=== PATIENT | female | born 1960 | race Caucasian/White ===

== ENCOUNTER → 2016-09-07 | Outpatient (REF) | payer MEDICARE, OTHER | LOC: M SFHCLERA 12:59 | PROVIDERS: ATTEND Nurse Practitioner Family | DX: J02.9 Acute pharyngitis, unspecified (principal) ==

== ENCOUNTER → 2016-11-12 | Outpatient (CLI) | payer MEDICARE, OTHER ==
--- NOTE | 2016-11-20 00:25 | ECWPNPC ---
PATIENT NAME: MOLLY MONTANEZ : 1960 GENDER: FEMALE VISIT DATE: 11/12/2016 DISCHARGE DATE: 11/12/16 1514 VISIT LOCKED DATE TIME: PHYSICIAN: GENE GA RESOURCE: GENE GA REASON FOR APPOINTMENT 1. BACK HISTORY OF PRESENT ILLNESS NEW PATIENT CONSULT: 56 Y/O FEMALE REFERRED TO US BY [facility] FOR EVALUATION OF CHRONIC LOW LOW BACK PAIN AND CHRONIC OPIOD USE.DESCRIBES PAIN CONSTANT ACHING AND THROBBING.RATING PAIN VAS 7/10.HISTORY OF LUMBAR SURGERY IN 2010.PAIN WAS GOOD FOR 6 MOS. THEN PAIN RETURNED.HAS BEEN ON HYDROCODONE 5/325 TWO TAB QID SINCE 2001. WE HAD A DISCUSSION REGARDING POTENTIAL SIDE EFFECTS OF DAILY OPIOD EXPOSURE AND IT WOULD BE OUR RECOMMENDATION TO SLOWLY DECREASE AN DISCONTINUE OPIODS.SHE IS ANXIOUS DUE TO THE FACT THAT SHE IS TAKING CARE OF HER GRANDCHILDREN AND IS AFRAID SHE WOULD NOT BE ABLE TO FUNCTION.HAS TRIALED MULTIPLE OTHER NON NARCOTIC PAIN MEDICATIONS OVER THE YEARS AND THEY WERE INEFFECTIVE.DENIES BOWEL OR BLADDER INCONTINENCE.NO RECENT FEVER ,ILLNESS OR WEIGHT LOSS. WHEN DID YOUR PAIN FIRST START? . BRIEFLY DESCRIBE HOW YOUR PAIN STARTED? . HOW DOES YOUR PAIN CHANGE WITH TIME? . DOES YOUR PAIN AWAKEN YOU FROM SLEEP? . HOW MANY HOURS OF SLEEP DO YOU NORMALLY GET? . ANY DIAGNOSTIC TESTING? . FACILITY WHERE TESTS WERE DONE? ____. PAIN TREATMENT TREATMENT YES CANCER HAVE YOU EVER HAD ANY TYPE OF CANCER?NO NO. PAIN SCREENING: PATIENT HAS A COMPLAINT OF ACUTE OR CHRONIC PAIN :YES FALL RISK SCREENING: SCREENING :NO FALLS IN THE PAST YEAR [place] INVENTORY: QUESTIONNAIRE ASSESSEDTBD SCORE VALUE CALCULATED TBD CURRENT MEDICATIONS TAKING RANITIDINE 150MG ORAL TID TAKING VITAMIN B12 SYRINGE 3CC SYRINGE 1 IM MONTHLY TAKING PROAIR HFA 108 (90 BASE) MCG/ACT AEROSOL SOLUTION 2 PUFFS NEEDED INHALATION QID PRN TAKING ADVAIR DISKUS 250-50 MCG/DOSE MISCELLANEOUS INHALATION NEEDED TAKING SINGULAIR 10 MG TABLET 1 TABLET IN THE EVENING ORALLY ONCE A DAY NEEDED, NOTES: NEEDED TAKING HYDROCODONE-ACETAMINOPHEN 5-325 MG TABLET 2 TABLET NEEDED ORALLY EVERY 6 HRS NOT-TAKING OXYCONTIN 20 MG TABLET EXTENDED RELEASE 12 HOUR 1 TABLET ORALLY QHS, NOTES: NEEDED NOT-TAKING PREDNISONE 10 MG TABLET 1 TABLET ORALLY ONCE A DAY, NOTES: NEEDED DISCONTINUED VICODIN 5-300 MG TABLET 2 TABLET NEEDED ORALLY EVERY 6 HRS PRN DISCONTINUED ROBAXIN 500 MG TABLET 1 TAB ORALLY TWICE DAILY NEEDED DISCONTINUED TAMIFLU 75 MG CAPSULE 1 CAPSULE ORALLY TWICE A DAY MEDICATION LIST REVIEWED AND RECONCILED WITH THE PATIENT PAST MEDICAL HISTORY DDD SPINE MORBID OBESITY S/P GASTRIC BYPASS UNCOMPLICATED ASTHMA, UNSPECIFIED ASTHMA SEVERITY HEARING IMPAIRED ALLERGIES PHENERGAN: HIVES: ALLERGY SURGICAL HISTORY L4-L5 SPINAL FUSION GASTRIC BYPASS T&A 1967 BREAST BX 2002 BONE SPURS REMOVED BOTH ANKLES/BOTH KNEES SINUS SURGERY-GAUZE REMOVED FROM PREVIOUS PROCEDURE HYSTERECTOMY 2003 FAMILY HISTORY FATHER: MOTHER: 1DAUGHTER(S) - HEALTHY. SOCIAL HISTORY GENERAL: TOBACCO USE ARE YOU A:NONSMOKER ALCOHOL SCREENING POINTS2 INTERPRETATIONNEGATIVE RECREATIONAL DRUG USE DRUG USE?NO CAFFEINE CAFFEINE USE?YES HOW OFTEN AND HOW MUCH? TEA DAILY OCCUPATION: RETIRED. DIET: SMALL PORTIONS S/P GASTRIC BYPASS. EXERCISE: DAILY, WALKS. MARITAL STATUS: . LEARNING BARRIERS / SPECIAL NEEDS BARRIERS TO LEARNING?YES HEARING IMPAIRED?YES : BILATERAL HEARING AIDS LEARNING PREFERENCES?YES :HANDOUTS, DEMONSTRATION/VERBAL INSTRUCTION MEDICATION ABUSE NO PSYCHOLOGICAL HX TREATMENTNO PAIN CLINIC PFS, CLERGY, PUBLIC HEALTH REFERRALS CLERGY REFERRAL NEEDED?NO WAS THE PROVIDER NOTIFIED OF ANY PERTINENT INFO?NO PFS REFERRAL NEEDED?NO PUBLIC HEALTH REFERRAL NEEDED?NO PATIENT: ____. ADVANCED DIRECTIVES HEALTH CARE PROXY?YES NAME OF HCP CARROLL REECE CONTACT # FOR HCP [phone] DO YOU HAVE A COPY WITH YOU? NO DO YOU HAVE A DNR? YES POWER OF TRAINING PROGRAM MANAGER? CARROLL REECE HOSPITALIZATION/MAJOR DIAGNOSTIC PROCEDURE ABOVE SURGERIES REVIEW OF SYSTEMS CONSTITUTIONAL: RECENT ILLNESS DENIES . ANY CHANGE IN YOUR MEDICAL CONDITION? NO . CHILLS NO . FEVER NO, DENIES . WEIGHT LOSS DENIES . INFECTION: DO YOU HAVE NEW INFECTIONS? NO . DO YOU HAVE HISTORY OF MRSA? NO . MUSCULOSKELETAL: ANY NEW PATTERNS OF PAIN OR NUMBNESS? YES HX OF LOW BACK PAIN X5 YRS. HX OF BACK SURGERY -EXTOP- L4-L5 IN 2010. DENIES SPECIFIC INJURY. PT STATES BACK PAIN IMPROVED AFTER GASTRIC BYPASS SURGERY, BUT PAIN RETURNED. . SYTEMIC LUPUS NO . JOINT PAIN DENIES . JOINT STIFFNESS DENIES . GASTROENTEROLOGY: BOWEL INCONTINENCE DENIES . ANY NEW CHANGE IN BOWEL CONTROL? NO . BARRETTS ESOPHAGUS NO . CIRRHOSIS NO . HEPATITIS NO . LIVER FAILURE NO . ACID REFLUX YES . BLOOD IN STOOL DENIES . UNEXPLAINED WEIGHT LOSS NO . GENITOURINARY: ANY NEW CHANGE IN BLADDER CONTROL? NO . IS THERE A CHANCE YOU COULD BE ? NO . HEMATOLOGY/LYMPH: DENIES . BLEEDING DISORDER DENIES . DO YOU TAKE ANY BLOOD THINNERS? (FOR EXAMPLE- COUMADIN, PLAVIX, AGGRENOX, PLATEL, PRADAXA, OR XARELTO) NO . WHEN WAS YOUR LAST DOSE? DATE: TIME: . LOW PLATELET COUNT NO . SICKLE CELL DISEASE NO . VON WILLIEBRANDS NO . FACTOR V LEIDEN NO . THALLASEMIA NO . ANEMIA NO . EASY BRUISING NO . NEUROLOGY: HAVE YOU FALLEN IN THE PAST 6 MONTHS? YES FELL OVER LAUNDRY BASKET 1 MONTH AGO. NO ED EVAL. DID SEE DENTIST. . ANY NEW EXTREMITY NUMBNESS OR WEAKNESS? NO . HEAD INJURY NO . DEMENTIA NO . CEREBRAL PALSY NO . MULTIPLE SCLEROSIS NO . DIZZINESS NO . HEADACHE NO, DENIES . SEIZURES DENIES . STROKES NO . VERTIGO NO . CARDIOLOGY: DO YOU HAVE A PACEMAKER OR DEFIBRILLATOR? NO . ANGINA NO . HEART ATTACK NO . HEART SURGERY NO . CONGESTIVE HEART FAILURE/FLUID OVERLOAD NO . CHEST PAIN NO, DENIES . HIGH BLOOD PRESSURE NO . IRREGULAR HEART BEAT NO . SHORTNESS OF BREATH DENIES . RESPIRATORY: HAVE YOU BEEN SICK IN THE PAST WEEK? NO . FEVER NO . FLU LIKE SYMPTOMS? NO . CPAP NO . BYPAP NO . ASTHMA YES . EMPHYSEMA NO . CHRONIC LUNG DISEASES NO . SHORTNESS OF BREATH ON EXERTION NO . DO YOU USE ANY TYPE OF TOBACCO (SMOKE, SMOKELESS, CHEW)? NO . COUGH NO, DENIES . SHORTNESS OF BREATH DENIES . SNORING NO . INTEGUMENTARY: DO YOU HAVE ANY RASHES OR OPEN SORES? NO . ALLERGIC/IMMUNO: ARE YOU ALLERGIC TO SHELLFISH OR IV DYE? NO . ANY NEW ALLERGIES? NO . PSYCHIATRIC: DO YOU HAVE THOUGHTS OF HURTING YOURSELF OR SOMEONE ELSE? NO . ARE YOU ABUSED, NEGLECTED, OR IN AN UNSAFE ENVIRONMENT? NO . ENDOCRINOLOGY: THYROID DISEASE DENIES . ARE YOU DIABETIC? NO . DIABETES DENIES . THYROID DISORDER NO . OTHER: DO YOU NEED ANY PRESCRIPTIONS? NO . IF YES, PLEASE LIST: ____ . ANY NEW PROBLEMS WITH YOUR MEDICATIONS? NO . WHEN DID YOU LAST EAT? ____ . WHEN DID YOU LAST DRINK? ____ . WHAT DID YOU LAST DRINK? ____ . NAME OF PERSON DRIVING YOU HOME? ____ . DO YOU HAVE ANY OTHER QUESTIONS OR CONCERNS NO . HEENT: CHANGE IN VISION DENIES . LOSS OF HEARING DENIES . TROUBLE SWALLOWING DENIES . PSYCHOLOGY: ANXIETY DENIES . DEPRESSION DENIES . UROLOGY: URINARY INCONTINENCE DENIES . BLOOD IN URINE DENIES . REVIEWED BY: PROVIDER: GENE JUILEN . VITAL SIGNS WT 144.8 LBS, HT 67", BMI 22.68 INDEX, BP 151/92 MM HG, HR 102 /MIN, RR 16 /MIN, TEMP 97.9 F, OXYGEN SAT % 96%, NA INITIALS TL 1347, REVIEWED BY: MLF. EXAMINATION GENERAL EXAMINATION: HEENT:HEAD:, NORMOCEPHALIC, EYES:, EYES NORMAL, NOSE:, NOSE CLEAR, THROAT: NORMAL. LUNGS:LUNG SOUNDS ARE CLEAR. HEART:HEART RATE REGULAR. ABDOMEN:SOFT AND NOT TENDER, NON-DISTENDED. MUSCULOSKELETAL:*. LUMBAR SACRAL SPINEMUSCLE STRENGTH TESTING 5/5 BILATERAL, PALPATION: + FOR PAIN OVER L/S SPINE. + FOR PAIN OVER L/S PARASPINALS.SPECIFIC POINT TENDERNESS OVER BILAT. SIJ R>L. THORACIC SPINENEGATIVE FOR PAIN WITH PALPATION OF THORACIC SPINE. NEGATIVE FOR PAIN WITH PALPATION OF THORACIC PARASPINAL. CERVICALNEGATIVE FOR PAIN WITH PALPATION OF CERVICAL SPINE. NEGATIVE FOR PAIN WITH PALPATION OF CERVICAL PARASPINALS. NEGATIVE FOR PAIN WITH PALPATION OF TRAPEZIUS BILAT. SKIN:NORMAL, NO RASH. NEUROLOGIC EXAM:ALERT AND ORIENTED X 3, DTRS 1-2+ IN ALL 4 EXTREMITIES, DENIES UPPER EXTREMETIES SENSORY LOSS, DENIES LOWER EXTREMETIES SENSORY LOSS. DIAGNOSTIC: . ASSESSMENTS POST LAMINECTOMY SYNDROME - M96.1 (PRIMARY) SACROILIAC INFLAMMATION - M46.1 CHRONIC PRESCRIPTION OPIATE USE - Z79.891 TREATMENT POST LAMINECTOMY SYNDROME DECREASE HYDROCODONE-ACETAMINOPHEN TABLET, 5-325 MG, 1-2, ORALLY, EVERY 12 HRS DIRECTED MDD4, 30 DAY(S), 60, REFILLS 0 START CLONIDINE HCL TABLET, 0.1 MG, 1 TABLET AT BEDTIME, ORALLY, Q8H PRN, 30 DAY(S), 30, REFILLS 0 NOTES: RISKS AND BENEFITS OF NARCOTIC/OPIOD MEDICATIONS WERE REVIEWED WITH PATIENT - THIS INCLUDES BUT IS NOT LIMITED TO RISK OF DEPENDANCE/DEVELOPMENT OF ADDICTION, MOOD DISTURBANCE AND DEPRESSION, OSTEOPOROSIS, HORMONAL AND LABIDAL CHANGES, RESPIRATORY DEPRESSION AND . PATIENT IS ADVISED NOT TO DRIVE WHILE ON THESE MEDICATIONS. OTHERS CLINICAL NOTES: SLOWLY DECREASE HYDROCODONE 5/325-TAKE 2TAB AM AND PM X 10 DAYS.THEN ONE AM AND PM UNTIL SEEN AT CLINIC. PREVENTIVE MEDICINE PAIN CLINIC TEACHING: MEDICATIONS PRINTED CLONIDINE HANDOUTS GIVEN/REVIEWED WITH PT. PROCEDURE CODES FA211 ESTABILISHED PATIENT [facility] CHARGE G8730 PAIN ASSESS POS TOOL F/U PLAN DOC G8427 DOC MEDS VERIFIED W/PT OR RE DISPOSITION & COMMUNICATION FOLLOW UP 4 WEEKS ELECTRONICALLY SIGNED BY WILY ALICIA ON 11/19/2016 AT 06:24 PM EDT DISCLAIMER : THIS IS A VISIT SUMMARY EXTRACTED FROM THE [employer] CHART. IT IS NOT A COPY OF THE [employer] PROGRESS NOTE. KASSANDRA
== END ==
LOC: M PAIN 13:20
PROVIDERS: ATTEND Nurse Practitioner Family
DX: G89.29 Other chronic pain (principal); M96.1 Postlaminectomy syndrome, not elsewhere classified; M46.1 Sacroiliitis, not elsewhere classified; E66.9 Obesity, unspecified; J45.909 Unspecified asthma, uncomplicated; H91.90 Unspecified hearing loss, unspecified ear; Z88.8 Allergy status to other drugs, medicaments and biological substances; Z79.899 Other long term (current) drug therapy

== ENCOUNTER → 2017-02-08 | Outpatient (CLI) | payer MEDICARE, OTHER ==
[~2017-02-08] MED LIST: ADVI200T PO; ALBU17IN2 INH; ALEV220T26 PO; CELE10TA PO; CYAN1000VL INJ; DIPH50CA PO; DRIS50002 PO; FOLI1TAB4 PO; IBUP200C10 PO; LIDO1PAD TOP; METH1TAB40; MUCI600T31 PO; OXYC-141; RANI150T PO; SING10TA32 PO; TRAZ10TA PO; VITMTA PO; ZOFR4TAB3 PO; azmacort
--- NOTE | 2017-02-08 18:35 | REP ---
Clinical: Pain with recent trauma. Technique: AP, lateral, bilateral oblique views of the right wrist. Findings: Osteopenia and moderate arthritic degenerative changes are appreciated. No acute fracture or dislocation identified. No significant soft tissue swelling. Impression: No acute fracture or dislocation. Signed by Tobi Ortiz MD 02/08/2017 06:26 P
--- NOTE | 2017-02-08 18:36 | REP ---
Clinical: Trauma. Technique: Frontal view of the chest with multiple views of the right and left hemithorax. Findings: Frontal view of the chest demonstrates no acute cardiopulmonary process. Multiple views of the right and left hemithorax demonstrates no obvious acute rib fracture or pathology. Impression: Normal bilateral rib series Signed by Tobi Ortiz MD 02/08/2017 06:28 P
== END ==
LOC: M LRY 17:33
PROVIDERS: ATTEND Nurse Practitioner Family
DX: R07.81 Pleurodynia (principal); S69.91XA Unspecified injury of right wrist, hand and finger(s), initial encounter; X58.XXXA Exposure to other specified factors, initial encounter; Y92.89 Other specified places as the place of occurrence of the external cause; Y93.89 Activity, other specified; Y99.8 Other external cause status
CPT/HCPCS: 71111; 73110; 96372; G0463; J1885

== ENCOUNTER 2017-03-04 13:29 | Emergency (ER) | payer MEDICARE, OTHER ==
[~2017-03-04] VITALS: Ht 170.2 cm; Wt 66.4 kg
[2017-03-04] MEDS ORDERED: METH1TAB40 (13:46)
[2017-03-04] MEDS ORDERED: CYAN1000VL INJ (13:46)
[2017-03-04] MEDS ORDERED: ALBU17IN2 INH (13:46)
[2017-03-04] MEDS ORDERED: SING10TA32 PO (13:46)
[2017-03-04] MEDS ORDERED: OXYC-141 (13:46)
[2017-03-04] MEDS ORDERED: RANI150T PO (13:46)
[2017-03-04] MEDS ORDERED: NS 1,000 ML IV SCH (13:48)
[2017-03-04] MEDS ORDERED: ASPIRIN 81 MG CHEW TABLET PO ONE (14:00)
[2017-03-04] MEDS ORDERED: GI COCKTAIL 50ML BTL(HYOSCYAMINE/MAALOX/LIDOCAINE VISCOUS)(1:3:1) PO ONE (14:00)
[2017-03-04 14:04] LABS: BASO % 0.4 % (0.0-1.0); EOS % 0.4 % (0.0-3.0); LARGE UNSTAINED CELL # 0.1 K/mm3 (0.0-0.4); LARGE UNSTAINED CELL % 1.6 % (0.0-4.0); LYMPH # 1.9 K/mm3 (1.5-4.5); LYMPH % 28.9 % (24.0-44.0); MEAN CORPUSCULAR HGB CONC 34.7 g/dl (32.0-36.5); MEAN CORPUSCULAR VOLUME 106.6 fl (80.0-96.0); MONO # 0.3 K/mm3 (0.0-0.8); MONO % 5.1 % (0.0-5.0); NEUTROPHILS # 3.9 K/mm3 (1.8-7.7); NEUTROPHILS % 63.6 % (36.0-66.0); PLATELET COUNT, AUTOMATED 169 k/mm3 (150-450); RED CELL DISTRIBUTION WIDTH 13.9 % (11.5-14.5); WHITE BLOOD COUNT 6.2 K/mm3 (4.0-10.0)
[2017-03-04 14:07] LABS: INR 0.94
[2017-03-04 14:32] LABS: ALBUMIN 2.9 GM/DL (3.2-5.2); ALBUMIN/GLOBULIN RATIO 0.85 (1.00-1.93); ALKALINE PHOSPHATASE 281 U/L (45-117); ALT/SGPT 92 U/L (12-78); ANION GAP 15 MEQ/L (8-16); AST/SGOT 234 U/L (15-37); BILIRUBIN,DIRECT 0.3 MG/DL (0.0-0.2); BILIRUBIN,TOTAL 0.8 MG/DL (0.2-1.0); BLOOD UREA NITROGEN 4 MG/DL (7-18); CALCIUM LEVEL 8.3 MG/DL (8.5-10.1); CARBON DIOXIDE LEVEL 20 MEQ/L (21-32); CHLORIDE LEVEL 103 MEQ/L (98-107); CREATININE FOR GFR 0.59 MG/DL (0.55-1.02); GLOMERULAR FILTRATION RATE > 60.0 (>51); GLUCOSE, FASTING 98 MG/DL (70-105); POTASSIUM SERUM 4.3 MEQ/L (3.5-5.1); SODIUM LEVEL 138 MEQ/L (136-145); TOTAL PROTEIN 6.3 GM/DL (6.4-8.2)
--- NOTE | 2017-03-04 14:43 | REP ---
PA and lateral chest: Comparison is the bilateral rib series dated 02/08/2017. The lung hernandez are clear. The cardiac size is normal The kassie, mediastinum, and bony thorax are unremarkable. Impression: Negative PA and lateral chest. Signed by Pablito Brasher MD 03/04/2017 02:35 P
[2017-03-04] MEDS ORDERED: KETOROLAC 30 MG/ML VIAL (J1885) IV ONE (15:15)
[2017-03-04] MEDS ORDERED: ONDANSETRON 4MG/2ML VIAL (J2405) IV ONE (15:15)
[2017-03-04] MEDS ORDERED: ISOVUE-370 76% 100ML VIAL (Q9967) As Ordered ONE (15:16)
[2017-03-04 15:18] LABS: AMYLASE 40 U/L (25-115)
[2017-03-04] MEDS ORDERED: ZOFR4TAB3 PO (16:37)
--- NOTE | 2017-03-04 16:38 | REP ---
CT of the abdomen pelvis with IV and bowel contrast: There are no comparison studies. The visualized lung hernandez are unremarkable. There is diffuse decreased density throughout the hepatic parenchyma, compatible with hepato steatosis. No hepatic masses. There is no cholelithiasis or biliary duct dilatation. However, there is enhancement of the gallbladder wall. This is nonspecific, however, could indicate acalculous cholecystitis. The. Correlate with clinical findings. Consider radionuclide biliary scan. There is a hiatal hernia and there are surgical clips at the gastroesophageal hiatus. The the patient states she has had bariatric surgery. There is focal distension of small bowel loops in the abdominal left upper quadrant. This is nonspecific but may represent focal ileus. There is a surgical staple line in the wall of the distended small bowel loops. The pancreas and spleen are unremarkable. The adrenals, kidneys and abdominal aorta are unremarkable. The mid and distal small bowel loops are unremarkable. Pelvis: There is no ascites or adenopathy. The bladder is unremarkable. There is a hysterectomy. Vaginal cuff and adnexa are unremarkable. The appendix is not identified, however there is no pericecal inflammation. Impression: Enhancement of the gallbladder wall. This is nonspecific. There is no cholelithiasis. The gallbladder wall enhancement may represent acalculous cholecystitis, however there is no gallbladder distension or pericholecystic fluid. Correlate clinically and consider radionuclide biliary scan. There is bariatric surgery. There are dilated small bowel loops in the abdominal left upper quadrant, nonspecific. There is a surgical staple line in the wall of the dilated small bowel, likely from bariatric surgery. This could represent focal ileus. There are no comparison studies. There is no ascites or adenopathy. No pneumoperitoneum. There is hepato steatosis. Signed by Pablito Brasher MD 03/04/2017 04:30 P
[2017-03-04 16:54] VITALS: BP 141/82
--- NOTE | 2017-03-05 07:29 | ED PDOC ---
Post-Departure Follow-Up radiology report faxed to [facility] Chaya Rodríguez MD Mar 05, 2017 07:29
--- NOTE | 2017-03-05 11:20 | ECGEPIP ---
Stationary ECG Study [facility] - ED Test Date: 2017-03-04 Pat Name: MOLLY MONTANEZ Department: Room: - Gender: F Production Material Handler: tk : 1960 Requested By: Damon Mejia Order Number: [id number] Reading MD: Chaya Rodríguez Measurements Intervals [place] Rate: 110 P: 61 IA: 137 QRS: -41 QRSD: 69 T: 26 QT: 316 QTc: 429 Interpretive Statements SINUS TACHYCARDIA PATTERN CONSISTENT WITH PULMONARY DISEASE INFERIOR MYOCARDIAL INFARCTION, PROBABLY OLD NO PRIOR FOR COMPARISON Electronically Signed On 03-05-2017 11:20:39 EDT by Chaya Rodríguez
== END 2017-03-04 16:57 | disposition home or self-care (01) ==
LOC: EDBD 13:29 → M ED 13:29
DX: K81.1 Chronic cholecystitis (principal); B19.9 Unspecified viral hepatitis without hepatic coma; K76.0 Fatty (change of) liver, not elsewhere classified; K44.9 Diaphragmatic hernia without obstruction or gangrene; K21.9 Gastro-esophageal reflux disease without esophagitis; J45.909 Unspecified asthma, uncomplicated; Z98.84 Bariatric surgery status; Z90.79 Acquired absence of other genital organ(s); Z87.891 Personal history of nicotine dependence; Z88.8 Allergy status to other drugs, medicaments and biological substances; Z79.899 Other long term (current) drug therapy; Z82.49 Family history of ischemic heart disease and other diseases of the circulatory system
CPT/HCPCS: 71020; 74177; 80048; 80076; 82150; 82550; 82553; 83690; 84484; 85025; 85610; 86705; 86709; 86803; 87340; 93005; 93041; 94760; 96361; 96374; 96375; 99285; J1885; J2405; Q9967

== ENCOUNTER 2017-05-07 16:52 | Inpatient (IN) | payer MEDICARE, OTHER ==
[~2017-05-07] VITALS: Ht 170.2 cm; Wt 72.0 kg
[~2017-05-07 16:52] MED LIST changes: -ADVI200T PO; -ALEV220T26 PO; -CELE10TA PO; -DIPH50CA PO; -DRIS50002 PO; -FOLI1TAB4 PO; -IBUP200C10 PO; -LIDO1PAD TOP; -MUCI600T31 PO; -TRAZ10TA PO; -VITMTA PO; -azmacort
[2017-05-07] MEDS ORDERED: ALEV220T26 PO (17:25)
[2017-05-07] MEDS ORDERED: IBUP200C10 PO (17:25)
[2017-05-07] MEDS ORDERED: azmacort (17:25)
[2017-05-07 18:35] LABS: MEAN CORPUSCULAR HEMOGLOBIN 35.1 pg (27.0-33.0); MEAN CORPUSCULAR HGB CONC 33.6 g/dl (32.0-36.5); MEAN CORPUSCULAR VOLUME 104.4 fl (80.0-96.0); RED CELL DISTRIBUTION WIDTH 12.9 % (11.5-14.5); WHITE BLOOD COUNT 3.5 10^3/uL (4.0-10.0)
[2017-05-07 18:42] LABS: ALBUMIN 3.5 GM/DL (3.2-5.2); ALBUMIN/GLOBULIN RATIO 1.21 (1.00-1.93); ALKALINE PHOSPHATASE 121 U/L (45-117); ALT/SGPT 31 U/L (12-78); ANION GAP 12 MEQ/L (8-16); AST/SGOT 52 U/L (15-37); BILIRUBIN,DIRECT 0.2 MG/DL (0.0-0.2); BILIRUBIN,TOTAL 0.4 MG/DL (0.2-1.0); BLOOD UREA NITROGEN 5 MG/DL (7-18); CALCIUM LEVEL 8.8 MG/DL (8.5-10.1); CARBON DIOXIDE LEVEL 26 MEQ/L (21-32); CHLORIDE LEVEL 103 MEQ/L (98-107); CREATININE FOR GFR 0.55 MG/DL (0.55-1.02); GLOMERULAR FILTRATION RATE > 60.0 (>51); GLUCOSE, FASTING 91 MG/DL (70-105); SODIUM LEVEL 141 MEQ/L (136-145); TOTAL PROTEIN 6.4 GM/DL (6.4-8.2)
[2017-05-07 18:48] LABS: METHADONE URINE NEGATIVE (NEGATIVE)
[2017-05-07] MEDS ORDERED: diphenhydrAMINE 50 MG CAP PO ONE (20:15)
[2017-05-07] MEDS ORDERED: LIDO1PAD TOP (20:54)
[2017-05-07] MEDS ORDERED: raNITIdine SYRUP 150 MG/10 ML UDC PO ONE (21:00)
[2017-05-08] MEDS ORDERED: OXAZEPAM 15 MG CAP PO ONE (01:00)
[2017-05-08] MEDS ORDERED: MAALOX 30 ML SUSP *UDC PO PRN (02:00)
[2017-05-08] MEDS ORDERED: MOM 30ML SUSPENSION UDC PO PRN (02:00)
[2017-05-08] MEDS: THIAMINE 100 MG TAB PO SCH ×3 (02:05→20:53)
[2017-05-08 02:41] VITALS: BP 138/81
[2017-05-08] MEDS: OXAZEPAM 15 MG CAP PO PRN ×2 (09:00→13:36)
[2017-05-08] MEDS: FOLIC ACID 1 MG TAB PO SCH (09:02)
[2017-05-08] MEDS: MULTIVITAMINS/MINERALS THERAP 1 TAB PO SCH (09:02)
[2017-05-08] MEDS ORDERED: ALBUTEROL 90 MCG/ACT 8GM HFA INHALER INH PRN (09:15)
[2017-05-08] MEDS ORDERED: IBUPROFEN 200 MG TAB PO PRN (09:15)
--- NOTE | 2017-05-08 09:29 | HPEPDOC ---
[facility] Medical History & Physical Date of Admission May 07, 2017 History and Physical PCP: Mook Vergara. Gastroenterology. Dr Benjie Ha MA. ATTENDING: Dr. Gold Foote HPI: 56yoF admitted to [facility] for unspecified depressive disorder, being medically examined today. She was seen in the [facility] emergency department 02/23 related to cholecystitis. Patient denies any abdominal pain currently. She states she has been eating and drinking. She was seen and follow-up by her PCP regarding this issue. She was referred to gastroenterology, Dr. Waldrop for evaluation of elevated liver function studies. She states testing was completed including right upper quadrant ultrasound. Her next appointment is scheduled 05/11/17. Patient states she has chronic low back pain. She uses ibuprofen as needed. She uses Lidoderm as needed. She states this is at her baseline. She does not feel she needs to see pain management. Denies any fevers, chills, weakness, fatigue, ARNOLD, CP, SOB, cough, palpitations, abdominal pain, N/V/D or changes in bowel or bladder habits. PMHx: DDD/back pain GERD Vitamin B 12 def Asthma H/O elevated LFT/cholecystitis/hepatitis. Following with Leland Salguero. CT A/P 02/23. Hepatitis profile negative 02/23. Bilateral hearing aids/hearing loss. PSHX: Tonsillectomy/adenoidectomy Right breast biopsy, benign Hysterectomy 2004 Lumbar laminectomy Bilateral foot surgery, heel spur/hammertoe Gastric bypass procedure SOCHX: Resides in: Staying at [facility] with her Dtr, from [place]. Marital Status: Kids:1 Employment: retired senior support analyst. Tobacco use: denies ETOH: Pt states 2 glasses of wine per week. Recently Pt states has drank "way too much" on 2 occasions. Illicit Drugs: Denies IV Drug Use: Denies Tattoos done unprofessionally: Denies FAMHX: Mother: heart disease Father: heart disease Siblings: 1 brother, 2 sisters Alive, MS, bipolar disorder. Children: Alive, well Unexpected deaths due to medical reasons: None. ROS: As noted in HPI, otherwise 11pt ROS of systems reviewed and remarkable only for LMP N/A Hysterectomy. PE: GEN: 56yoF, appears stated age. Well-nourished, well developed. No acute distress. Alert and oriented x 3. Pleasant, interactive. HEENT: Normocephalic, atraumatic. Pupils are equal, round, and reactive to light. Extraocular movements are intact. No nystagmus appreciated. Sclera are nonicteric. Conjunctiva without injection. Nose midline. Nasal turbinates without bogginess. EACs both patent BL. TMs both visualized and rodriguez with good cone of light, no bulging or erythema. No facial asymmetry. Moist mucous membranes. Dentition fair. Pharynx pink and moist, no cobblestoning. Neck supple , trachea midline. No lymphadenopathy or thyromegaly appreciated. CHEST: Regular rate and rhythm, +S1, +S2 LUNGS: Clear to auscultation bilaterally. No wheezes, rales, or rhonchi. Breathing appears symmetric and easy. Patient is speaking in full sentences. No accessory muscle use. ABD: Round, soft, non-tender, non-distended. +Bowel sounds throughout. No rebound or guarding. No costovertebral angle tenderness. EXT: Pulses 2+ bilaterally dorsalis pedis and radial. No lower extremity edema appreciated. SKIN: [place], dry, warm. Capillary refill <2sec. No rashes. NEURO: Alert and oriented x 3. Cranial nerves III-XII are intact. No focal deficits appreciated. EKG: pending. CT A/P 02/23 Enhancement of the gallbladder wall. This is nonspecific. There is no cholelithiasis. The gallbladder wall enhancement may represent acalculous cholecystitis, however there is no gallbladder distension or pericholecystic fluid. Correlate clinically and consider radionuclide biliary scan. There is bariatric surgery. There are dilated small bowel loops in the abdominal left upper quadrant, nonspecific. There is a surgical staple line in the wall of the dilated small bowel, likely from bariatric surgery. This could represent focal ileus. There are no comparison studies. There is no ascites or adenopathy. No pneumoperitoneum. There is hepato steatosis. A&P: 56yoF admitted to [facility] for unspecified depressive disorder 1. Psych. Plan per Psychiatry. Obtain baseline EKG to assure the safety of psychiatric medications as they can prolong the QT interval. 2. History of elevated LFTs. Recheck CMP in a.m. Request copy of records from gastroenterology, Dr. a monoclonal including right upper quadrant ultrasound. Hepatitis profile is noted to be unremarkable 03/04/17. Patient has follow-up appointment with Dr. Waldrop 05/11/17. 3. GERD. Continue Zantac 150 mg 3 times a day. 4. Follow up with PCP on discharge. 5. Substance use. Per psychiatry. Continue with MVI, Thiamine, and Folic Acid supplementation. 6. Vitamin B12 deficiency. Continue monthly injections. 7. Asthma. Continue albuterol HFA 2 puffs every 4 hours as needed. 8. Chronic low back pain. Continue ibuprofen 200 mg every 6 hours as needed for pain, Lidoderm patch applied to low back daily as needed. 9. History of vitamin B12 deficiency. Continue with monthly injections. 10. History of gastric bypass. BMI noted to be 23.9. Hemoglobin is noted within normal limits. TSH is noted within normal limits. Add vitamin D level. 11. Staff member Kylee present throughout exam. Vital Signs Vital Signs Date Time Temp Pulse Resp B/P (MAP) Pulse Ox O2 Delivery O2 Flow Rate FiO2 05/08/17 02:41 97.5 96 20 138/81 (100) Room Air 05/08/17 02:07 96 Laboratory Data Labs 24H Item Value Date Time Hepatitis A IgM Antibody NEGATIVE 03/04/17 1345 Hepatitis B Surface Antigen NEGATIVE 03/04/17 1345 Hepatitis B Core IgM Antibody NEGATIVE 03/04/17 1345 Hepatitis C Antibody Index < 0.0 INDEX 03/04/17 1345 Laboratory Tests 2 05/07/17 17:32: Anion Gap 12, Glomerular Filtration Rate > 60.0, Calcium Level 8.8, Aspartate Amino Transf (AST/SGOT) 52H, Alanine Aminotransferase (ALT/SGPT) 31, Alkaline Phosphatase 121H, Total Bilirubin 0.4, Direct Bilirubin 0.2, Total Protein 6.4, Albumin 3.5, Albumin/Globulin Ratio 1.21, Thyroid Stimulating Hormone (TSH) 1.050, Salicylates Level < 1.7L, Urine Amphetamines Screen NEGATIVE, Urine Benzodiazepines Screen NEGATIVE, Urine Opiates Screen NEGATIVE, Urine Methadone Screen NEGATIVE, Acetaminophen Level < 2.0L, Urine Barbiturates Screen NEGATIVE , Urine Phencyclidine Screen NEGATIVE, Urine Cocaine Metabolite Screen NEGATIVE , Urine Cannabinoids Screen NEGATIVE, Ethyl Alcohol Level 0.272H CBC/BMP Laboratory Tests 05/07/17 17:32 Red Blood Count 4.36, Mean Corpuscular Volume 104.4 H, Mean Corpuscular Hemoglobin 35.1 H, Mean Corpuscular Hemoglobin Concent 33.6, Red Cell Distribution Width 12.9 Home Medications Scheduled Cyanocobalamin (Cyanocobalamin) 1,000 Mcg/1 Ml Inj, 1,000 MCG INJ QMONTH 28TH OF EVERY MONTH Ranitidine HCl (Ranitidine HCl) 150 Mg Tab, 150 MG PO TID Scheduled PRN (Lidocaine) 5 % Pad, 1 PATCH TOP DAILY PRN for PAIN APPLY TO LOWER BACK Albuterol Sulfate (Proventil Hfa) 167 Puff/6.7 Gm Aers, 2 PUFFS INH PRN PRN for SHORTNESS OF BREATH Ibuprofen (Ibuprofen) 200 Mg Cap, 200 MG PO PRN PRN for pain Naproxen Sodium (Aleve) 220 Mg Tab, 220 MG PO BID PRN for PAIN Allergies Coded Allergies: Promethazine (Verified Allergy, Intermediate, 03/04/17) hives and nausea Shamika Black May 08, 2017 09:29
[2017-05-08] MEDS: FAMOTIDINE 20 MG TAB PO SCH ×2 (13:37→20:53)
[2017-05-08] MEDS: CitaloPRAM (CeleXA) 10 MG TABLET PO SCH (13:37)
[2017-05-08] MEDS: ACETAMINOPHEN TAB 650MG DOSE (2X325MG) PO PRN (17:53)
[2017-05-08 18:00] VITALS: BP 134/66
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
[2017-05-08] MEDS: traZODone 50 MG TAB PO PRN (20:53)
[2017-05-08] MEDS: LIDOCAINE 5% (LIDODERM) PATCH TOP PRN (20:55)
[2017-05-08 21:00] VITALS: BP 136/74
[2017-05-08] MEDS: **NOTE PATIENT COMMENT** MISC XX SCH (21:31)
--- NOTE | 2017-05-08 23:36 | ECGEPIP ---
Stationary ECG Study [facility] Test Date: 2017-05-08 Pat Name: MOLLY MONTANEZ Department: Room: [place] [address] Gender: F Steward/Stewardess Tourist Class: : [id number] Requested By: Shamika Black Order Number: [id number] Reading MD: Osito Doll Measurements Intervals [place] Rate: 109 P: 31 TX: 146 QRS: -34 QRSD: 86 T: 20 QT: 334 QTc: 451 Interpretive Statements SINUS TACHYCARDIA MARKED LEFT AXIS DEVIATION PATTERN CONSISTENT WITH PULMONARY DISEASE NO SIGNIFICANT CHANGES. LAST TRACING ON 03/04/2017 AT 13:48:57 Electronically Signed On 05-08-2017 23:35:44 EDT by Osito Doll
[2017-05-09] VITALS (7 sets, daily range): BP systolic 125–148; BP diastolic 62–89
[2017-05-09 08:22] LABS: ALBUMIN 3.2 GM/DL (3.2-5.2); ALBUMIN/GLOBULIN RATIO 1.23 (1.00-1.93); ALKALINE PHOSPHATASE 126 U/L (45-117); ALT/SGPT 22 U/L (12-78); ANION GAP 8 MEQ/L (8-16); AST/SGOT 33 U/L (15-37); BILIRUBIN,TOTAL 1.2 MG/DL (0.2-1.0); BLOOD UREA NITROGEN 8 MG/DL (7-18); CALCIUM LEVEL 8.6 MG/DL (8.5-10.1); CARBON DIOXIDE LEVEL 29 MEQ/L (21-32); CHLORIDE LEVEL 102 MEQ/L (98-107); CREATININE FOR GFR 0.54 MG/DL (0.55-1.02); GLOMERULAR FILTRATION RATE > 60.0 (>51); GLUCOSE, FASTING 97 MG/DL (70-105); POTASSIUM SERUM 3.4 MEQ/L (3.5-5.1); SODIUM LEVEL 139 MEQ/L (136-145); TOTAL PROTEIN 5.8 GM/DL (6.4-8.2)
[2017-05-09] MEDS: MULTIVITAMINS/MINERALS THERAP 1 TAB PO SCH (08:25)
[2017-05-09] MEDS: CitaloPRAM (CeleXA) 10 MG TABLET PO SCH (08:25)
[2017-05-09] MEDS: FOLIC ACID 1 MG TAB PO SCH (08:25)
[2017-05-09] MEDS: THIAMINE 100 MG TAB PO SCH ×2 (08:25→20:42)
[2017-05-09] MEDS: FAMOTIDINE 20 MG TAB PO SCH ×2 (08:25→20:42)
[2017-05-09] MEDS: OXAZEPAM 15 MG CAP PO PRN ×2 (08:28→20:46)
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
[2017-05-09] MEDS: traZODone 50 MG TAB PO PRN (20:42)
[2017-05-09] MEDS: **NOTE PATIENT COMMENT** MISC XX SCH (21:46)
[2017-05-10 06:00] VITALS: BP 123/69
[2017-05-10] MEDS: diphenhydrAMINE 50 MG CAP PO PRN ×2 (06:50→20:10)
[2017-05-10] MEDS: MULTIVITAMINS/MINERALS THERAP 1 TAB PO SCH (08:17)
[2017-05-10] MEDS: CitaloPRAM (CeleXA) 10 MG TABLET PO SCH (08:17)
[2017-05-10] MEDS: THIAMINE 100 MG TAB PO SCH (08:17)
[2017-05-10] MEDS: FOLIC ACID 1 MG TAB PO SCH (08:17)
[2017-05-10] MEDS: FAMOTIDINE 20 MG TAB PO SCH ×2 (08:17→20:10)
[2017-05-10] MEDS ORDERED: traZODone 50 MG TAB PO PRN (11:45)
[2017-05-10] MEDS: guaiFENesin ER 600 MG TAB PO SCH ×2 (15:06→20:10)
[2017-05-10 18:00] VITALS: BP 134/76
--- NOTE | 2017-05-10 20:04 | MHIPNPDOC ---
[facility] Progress Note Progress Note DATE OF SERVICE: 05/10/17 HISTORY: Patient is a 56-year-old female, who was admitted to the [facility] ED after her daughter called the police. She was sobered up, had a DORIS of 0.272 and transferred to the [facility] for depression. VITAL SIGNS: See below. NEW TEST RESULTS: None CURRENT MEDICATIONS: See below. MENTAL STATUS EXAMINATION: Patient is a 56-year old female, who is alert, cooperative, in good spirits, dressed in hospital clothes, with good eye contact, good hygiene Speech: Is normal in rate, tone and volume. Language skills are normal. Thought processes including: Intact. Thought content: Coherent. Abstract reasoning, and computation: Not assessed at this time. Description of associations: Good. Description of abnormal or psychotic thoughts: Denies homicidal ideation, denies suicidal ideation, denies psychosis. Judgment: Improved. Insight: Improved. Orientation: Oriented 3. Recent and remote memory: Intact. Attention span and concentration: Good. Language: Normal. Fund of knowledge: Not assessed at this time. Mood: Euthymic. Affect: Euthymic, congruent with mood. DIAGNOSES: 1. Unspecified depressive disorder, with possible SI 2. Unspecified Anxiety disorder 2. Alcohol use disorder ASSESSMENT: Patient is very insightful and has good judgment, she knows she has to leave her daughter's house in order to get her life back. She reported feeling very anxious this morning because to other patients got into an argument that escalated, they were loud and disrespectful to one another. This incident made Estefany anxious and she refused to leave her room. She has not been feeling well, she has a cold and last night one of the nurses called me to ask if the patient could have Benadryl for her runny nose and what are eyes. This morning, this proposal writer prescribed her Mucinex, which is something that she uses at home when she has a cold. Patient is insightful about her problem, she knows if she would have gotten drunk she wouldn't have been at the inpatient mental health unit. She knows she wants to drink again the way that she didn't that the to avoid being hospitalized in a psychiatric [facility]. She is planning to go back to [place] and enjoy life again without being overwhelmed as she has been in [place]. MANAGEMENT PLAN: We'll continue on the same treatment plan, possible discharge tomorrow. TIME SPENT: 30 minutes. Vital Signs Vital Signs Date Time Temp Pulse Resp B/P (MAP) Pulse Ox O2 Delivery O2 Flow Rate FiO2 05/10/17 18:00 97.8 97 16 134/76 (95) 05/09/17 09:36 Room Air 05/08/17 02:07 96 Current Medications Current Medications Acetaminophen (Tylenol Tab) 650 mg Q6HP PRN PO HEADACHE or DISCOMFORT Last administered on 05/08/17 17:53; Start 05/08/17 at 02:00; Stop 06/07/17 at 01: 59 Al Hydrox/Mg Hydrox/Simethicone (Mylanta) 30 ml Q4HP PRN PO HEARTBURN/ INDIGESTION Last administered on 05/09/17 13:50; Start 05/08/17 at 02:00; Stop 06/07/17 at 01:59 Albuterol Sulfate (Proventil, Ventolin Hfa) 2 puff Q4HP PRN INH SHORTNESS OF BREATH; Start 05/08/17 at 09:15; Stop 06/07/17 at 09:14 Citalopram Hydrobromide (CeleXA) 10 mg DAILY PO Last administered on 05/10/17 08:17; Start 05/08/17 at 09:00; Stop 06/07/17 at 08:59 Diphenhydramine HCl (Benadryl) 50 mg Q8HP PRN PO COUGH Last administered on 06:50; Start 05/09/17 at 21:00; Stop 06/08/17 at 20:59 Famotidine (Pepcid) 20 mg BID PO Last administered on 05/10/17 08:17; Start at 09:00; Stop 06/07/17 at 08:59 Folic Acid (Folic Acid) 1 mg DAILY PO Last administered on 05/10/17 08:17; Start 05/08/17 at 09:00; Stop 06/07/17 at 08:59 Guaifenesin (Mucinex Tab Er) 600 mg TID PO Last administered on 05/10/17 15:06 ; Start 05/10/17 at 16:00; Stop 06/09/17 at 15:59 Home Med (Med Rec Complete!) ASDIRECTED XX ; Start 05/07/17 at 21:00; Stop at 21:00; Status DC Ibuprofen (Advil) 200 mg Q6HP PRN PO PAIN; Start 05/08/17 at 09:15; Stop 06/07 at 09:14 Lidocaine (Lidoderm Patch) 1 patch DAILY PRN TOP PAIN; Start 05/08/17 at 09:15 ; Stop 06/07/17 at 09:14 Magnesium Hydroxide (Milk Of Magnesia) 30 ml DAILYPRN PRN PO CONSTIPATION; Start 05/08/17 at 02:00; Stop 06/07/17 at 01:59 Multivitamins (Theragram-M) 1 tab DAILY PO Last administered on 05/10/17 08:17 ; Start 05/08/17 at 09:00; Stop 06/07/17 at 08:59 Non-Formulary Medication ( See Comment Field Below ) REMOVE LIDODERM PATCH DAILY@21 XX Last administered on 05/09/17 21:46; Start 05/08/17 at 21:00; Stop 06/07/17 at 20:59 Oxazepam (Serax) 30 mg Q4HP PRN PO WITHDRAWAL SYMPTOMS Last administered on 20:46; Start 05/08/17 at 02:00; Stop 05/15/17 at 01:59 Thiamine HCl (Thiamine HCl) 100 mg BID PO Last administered on 05/10/17 08:17 ; Start 05/07/17 at 21:00; Stop 05/10/17 at 11:00; Status DC Trazodone HCl (Desyrel) 50 mg QHSP PRN PO INSOMNIA Last administered on 20:42; Start 05/08/17 at 02:00; Stop 05/10/17 at 11:34; Status DC Trazodone HCl (Desyrel) 75 mg QHSP PRN PO INSOMNIA; Start 05/10/17 at 11:45; Stop 05/10/17 at 11:58; Status DC Trazodone HCl (Desyrel) 100 mg QHS PO ; Start 05/10/17 at 21:00; Stop 06/09/17 at 20:59 Allergies Coded Allergies: Promethazine (Verified Allergy, Intermediate, 03/04/17) hives and nausea AMAN PEREZ MD May 10, 2017 20:04
[2017-05-10] MEDS: LIDOCAINE 5% (LIDODERM) PATCH TOP PRN (20:11)
[2017-05-10] MEDS ORDERED: **NOTE PATIENT COMMENT** MISC XX PRN (20:15)
[2017-05-10] MEDS ORDERED: traZODone 100 MG TAB PO SCH (21:00)
[2017-05-11] MEDS: ACETAMINOPHEN TAB 650MG DOSE (2X325MG) PO PRN (02:42)
[2017-05-11 06:25] VITALS: BP 142/76
[2017-05-11] MEDS: guaiFENesin ER 600 MG TAB PO SCH (08:29)
[2017-05-11] MEDS: FAMOTIDINE 20 MG TAB PO SCH (08:29)
[2017-05-11] MEDS: MULTIVITAMINS/MINERALS THERAP 1 TAB PO SCH (08:29)
[2017-05-11] MEDS: FOLIC ACID 1 MG TAB PO SCH (08:30)
[2017-05-11] MEDS: CitaloPRAM (CeleXA) 10 MG TABLET PO SCH (08:30)
[2017-05-11] MEDS ORDERED: VITAMIN D 50,000 UNITS CAPSULE (ERGOCALCIFEROL 1.25MG) PO SCH (09:00)
[2017-05-11] MEDS: diphenhydrAMINE 50 MG CAP PO PRN (10:01)
[2017-05-11] MEDS ORDERED: CELE10TA PO (11:47)
[2017-05-11] MEDS ORDERED: MUCI600T31 PO (11:48)
[2017-05-11] MEDS ORDERED: TRAZ10TA PO (11:48)
[2017-05-11] MEDS ORDERED: VITMTA PO (11:48)
[2017-05-11] MEDS ORDERED: ADVI200T PO (11:48)
[2017-05-11] MEDS ORDERED: DRIS50002 PO (11:48)
[2017-05-11] MEDS ORDERED: DIPH50CA PO (11:48)
[2017-05-11] MEDS ORDERED: FOLI1TAB4 PO (11:48)
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
== END 2017-05-11 12:52 | disposition home or self-care (01) | DRG 881 ==
LOC: M ED 16:52 → M ED INP 05-08 01:50 → M PSY 05-08 02:33
PROVIDERS: ADMIT Psychiatry & Neurology Psychiatry; ATTEND Psychiatry & Neurology Psychiatry
DX: F32.9 Major depressive disorder, single episode, unspecified (principal); R45.851 Suicidal ideations; F41.9 Anxiety disorder, unspecified; F10.10 Alcohol abuse, uncomplicated; Z62.810 Personal history of physical and sexual abuse in childhood; Z91.410 Personal history of adult physical and sexual abuse; Z79.899 Other long term (current) drug therapy; Z88.8 Allergy status to other drugs, medicaments and biological substances; K21.9 Gastro-esophageal reflux disease without esophagitis; M54.5 Low back pain; J45.909 Unspecified asthma, uncomplicated; E53.8 Deficiency of other specified B group vitamins; H90.0 Conductive hearing loss, bilateral; Z68.23 Body mass index [BMI] 23.0-23.9, adult; Z98.84 Bariatric surgery status

== ENCOUNTER → 2018-12-22 | Outpatient (CLI) | payer MEDICARE, OTHER ==
[~2018-12-22] MED LIST changes: +ADVI200T PO; +ALEV220T26 PO; +CELE10TA PO; +CYCL10TA PO; +DIPH50CA PO; +DOCU100C16 PO; +DRIS50003 PO; +DULC5TAB PO; +FOLI1TAB11 PO; +IBUP-1092 PO; +IBUP200C25 PO; +LIDO1PAD TOP; +LOPE2TAB11 PO; +MUCI600T31 PO; +PROAAER10 INH; +TRAM50TA2 PO; +TRAZ10TA PO; +VENL150C43 PO; +VITMTA PO; +ZOFR4TAB14 PO; -ZOFR4TAB3 PO; +azmacort
--- NOTE | 2018-12-22 14:07 | REP ---
Left hip: Two views. History: Injury to the left hip. Findings: AP and frog-leg views of the left hip show diffuse osteopenia. No fracture or subluxation is seen. Impression: Diffuse osteopenia. No fracture noted. Electronically Signed by Quique Luevano MD 12/22/2018 04:30 P
--- NOTE | 2018-12-22 14:07 | REP ---
Sacrum and coccyx series: Three views. History: Injury of the coccyx. Findings: The patient is status post L4-5 interspinous process fusion. There is moderate bowel gas overlying the sacrum and the coccyx on the frontal views. On lateral radiograph, there is no evidence of sacral or coccygeal fracture or displacement. Presacral soft tissues do not appear to be widened. There is diffuse osteopenia. Impression: Bowel gas overlies the sacrum on the frontal views. No fracture or subluxation is visible. Electronically Signed by Quique Luevano MD 12/22/2018 04:29 P
== END ==
LOC: M LRY 12:51
PROVIDERS: ATTEND Physician Assistant
DX: M85.88 Other specified disorders of bone density and structure, other site (principal); S79.912A Unspecified injury of left hip, initial encounter; S39.92XA Unspecified injury of lower back, initial encounter; W10.9XXA Fall (on) (from) unspecified stairs and steps, initial encounter; Y92.9 Unspecified place or not applicable; R30.0 Dysuria
CPT/HCPCS: 72220; 73502; 81002; 87088; 87186; 96372; G0463; J1885

== ENCOUNTER → 2018-12-22 | Outpatient (REF) | payer MEDICARE, OTHER | LOC: M SFHCLERA 17:41 | PROVIDERS: ATTEND Physician Assistant | DX: R30.0 Dysuria (principal) ==

== ENCOUNTER 2018-12-24 16:39 | Emergency (ER) | payer MEDICARE, OTHER ==
[~2018-12-24] VITALS: Ht 170.2 cm; Wt 71.8 kg
[~2018-12-24 16:39] MED LIST changes: -CYCL10TA PO; -DOCU100C16 PO; -DULC5TAB PO; -IBUP-1092 PO; -LOPE2TAB11 PO; -PROAAER10 INH; -TRAM50TA2 PO; -VENL150C43 PO
[2018-12-24] MEDS ORDERED: ACETAMINOPHEN 325 MG TAB PO ONE (18:15)
[2018-12-24] MEDS ORDERED: traMADol 50 MG TAB PO ONE (18:15)
[2018-12-24] MEDS ORDERED: TRAM50TA2 PO (19:39)
[2018-12-24 19:41] VITALS: BP 122/75
--- NOTE | 2018-12-25 08:25 | REP ---
HISTORY: Back pain after a fall. Posterior fixators are seen at L4-5. There is disc space narrowing at L4-5 and L5-S1 with air density in the disc spaces consistent with vacuum phenomenon from degenerative disc disease. The bones are demineralized. There is mild anterior lipping at every level. Vertebral body height and alignment is within normal limits. The pedicles are intact bilaterally. There is no spondylolysis or spondylolisthesis. IMPRESSION: Chronic changes as described above. Electronically Signed by Justin Dunbar DO 12/25/2018 08:34 A
--- NOTE | 2018-12-25 08:27 | REP ---
HISTORY: Pain after trauma. COMPARISON: None. The bones are demineralized. There is a possible fracture involving the fourth or fifth sacral segment seen only on the lateral view. The age of this cannot be determined by this exam if present. The bones are demineralized. IMPRESSION: Possible fourth or even fifth sacral segment fracture or even possible first coccygeal segment fracture. The bones are demineralized. If clinically relevant consider CT. Electronically Signed by Justin Dunbar DO 12/25/2018 08:35 A
== END 2018-12-24 19:48 | disposition home or self-care (01) ==
LOC: M ED 16:39
DX: S32.2XXA Fracture of coccyx, initial encounter for closed fracture (principal); W10.9XXA Fall (on) (from) unspecified stairs and steps, initial encounter
CPT/HCPCS: 72110; 72220; 99283; G0463

== ENCOUNTER 2018-12-30 17:18 | Inpatient (IN) | payer MEDICARE, OTHER ==
[~2018-12-30] VITALS: Ht 170.2 cm; Wt 70.0 kg
[~2018-12-30 17:18] MED LIST changes: +TRAM50TA2 PO
[2018-12-30] MEDS ORDERED: NS 1,000 ML IV ONE (18:15)
--- NOTE | 2018-12-30 18:59 | REP ---
Clinical: Continued pain with recent trauma. Technique: Axial noncontrast images through the lumbosacral spine with coronal and sagittal re-formations. Comparison: Images from abdominal CT dated 03/04/2017. Findings: Very subtle nondisplaced fracture through the superior aspect of the right sacral ala as well as a possible small nondisplaced fracture along the inferior tip of the left sacral ala cannot be excluded due to osteopenia and degenerative changes. No obvious coccygeal fracture noted. Evaluation of the lumbar spine demonstrates normal alignment and lordosis along with osteopenia and moderate multilevel degenerative changes including endplate sclerosis, marginal osteophytes, disc space narrowing and hypertrophic facet changes. Evidence for prior fixation along the L4-L5 spinous processes. No acute lumbar fracture / compression injury or subluxation identified. Visualized structures within and surrounding the pelvis are essentially normal for age. Evidence for prior hysterectomy noted. Impression: Examination is significantly limited due to osteopenia and degenerative changes. Very subtle nondisplaced bilateral sacral alae fractures cannot definitively be excluded. Clinical correlation is recommended and if necessary noncontrast MRI should be considered for more definitive diagnosis. Electronically Signed by Tobi Ortiz MD 12/30/2018 06:50 P
[2018-12-30 19:04] LABS: BASO % 0.7 % (0.0-1.0); EOS # 0.1 10^3/uL (0.0-0.50); EOS % 2.3 % (0.0-3.0); HEMATOCRIT 40.4 % (36.0-47.0); HEMOGLOBIN 13.2 g/dl (12.0-15.5); LYMPH # 1.3 10^3/uL (1.5-4.5); LYMPH % 22.6 % (24.0-44.0); MEAN CORPUSCULAR HEMOGLOBIN 33.8 pg (27.0-33.0); MEAN CORPUSCULAR HGB CONC 32.7 g/dl (32.0-36.5); MEAN CORPUSCULAR VOLUME 103.6 fl (80.0-96.0); MONO # 0.6 10^3/uL (0.0-0.8); MONO % 9.8 % (0.0-5.0); NEUTROPHILS # 3.7 10^3/uL (1.8-7.7); NEUTROPHILS % 63.7 % (36.0-66.0); PLATELET COUNT, AUTOMATED 177 10^3/uL (150-450); WHITE BLOOD COUNT 5.7 10^3/uL (4.0-10.0)
[2018-12-30 19:27] LABS: ALBUMIN 2.1 GM/DL (3.2-5.2); ALT/SGPT 23 U/L (12-78); BILIRUBIN,DIRECT 0.3 MG/DL (0.0-0.2); BILIRUBIN,TOTAL 0.8 MG/DL (0.2-1.0); BLOOD UREA NITROGEN 9 MG/DL (7-18); CALCIUM LEVEL 8.7 MG/DL (8.8-10.2); CARBON DIOXIDE LEVEL 28 MEQ/L (21-32); CHLORIDE LEVEL 100 MEQ/L (98-107); CREATININE FOR GFR 0.68 MG/DL (0.55-1.30); GLOMERULAR FILTRATION RATE > 60.0 (>45); GLUCOSE, FASTING 119 MG/DL (70-100); LIPASE 34 U/L (73-393); POTASSIUM SERUM 4.3 MEQ/L (3.5-5.1); SODIUM LEVEL 135 MEQ/L (136-145); TOTAL PROTEIN 5.1 GM/DL (6.4-8.2)
--- NOTE | 2018-12-30 20:36 | REP ---
Clinical: Trauma. Altered mental status. Comparison: None . Findings: Age-related atrophy and microvascular ischemic changes are appreciated. The ventricles and sulci are symmetric. Artis-white differentiation is maintained. There is no evidence for acute intracranial hemorrhage, mass/mass effect, pathology or infarction. No extra-axial fluid collection. Calvarium is intact. Paranasal sinuses and mastoid air cells are clear. Impression: Age related atrophy and microvascular ischemic changes. No acute intracranial hemorrhage, infarction, or mass/mass effect. Electronically Signed by Tobi Ortiz MD 12/30/2018 08:26 P
--- NOTE | 2018-12-30 22:26 | REPVR ---
EXAM: MR Lumbar Spine Without Contrast. EXAM DATE/TIME: 12/30/2018 9:26 PM CLINICAL HISTORY: 58 years old, female; Pain and injury or trauma; Fall; Follow-up exam; Crushing; Low back pain; Prior surgery; Surgery date: 6+ months; Surgery type: Fusion; Patient HX: HX trauma; Additional info: Low back pain, incont, sacral FX TECHNIQUE: Imaging protocol: Multiplanar magnetic resonance images of the lumbar spine without intravenous contrast. COMPARISON: CT Spine, lumbar w/o contrast 12/30/2018 6:21 PM FINDINGS: Sacrum/coccyx: There is an acute nondisplaced fracture of the sacrum involving both the right and left sacral ala. There is edema throughout the entire sacrum secondary to trauma/bone bruising. Soft tissues: Unremarkable. IMPRESSION: Nondisplaced fracture of the sacrum involving the right and left sacral ala with edema throughout the sacrum secondary to bone bruising and bony trabecular injury. Electronically signed by: Chandra Fisher On 12/30/2018 22:25:39 PM
[2018-12-30 22:28] LABS: AMPHETAMINES LEVEL URINE NEGATIVE (NEGATIVE); BARBITURATES URINE NEGATIVE (NEGATIVE); BENZODIAZEPINES URINE NEGATIVE (NEGATIVE); CANNABINOIDS URINE NEGATIVE (NEGATIVE); COCAINE METABOLITE URINE NEGATIVE (NEGATIVE); METHADONE URINE NEGATIVE (NEGATIVE); OPIATES URINE NEGATIVE (NEGATIVE); PHENCYCLIDINE URINE NEGATIVE (NEGATIVE)
[2018-12-30] MEDS ORDERED: MORPHINE 4 MG/ML 1ML VIAL/SYRINGE (J2270) IV ONE (23:15)
[2018-12-31] MEDS ORDERED: MAALOX 30 ML SUSP *UDC PO PRN
[2018-12-31] MEDS ORDERED: KETOROLAC 30 MG/ML VIAL (J1885) IV ONE
[2018-12-31] MEDS ORDERED: TRAM50TA2 PO (00:43)
[2018-12-31] MEDS ORDERED: DIPH50CA PO (00:43)
[2018-12-31] MEDS ORDERED: PROAAER10 INH (00:43)
[2018-12-31] MEDS ORDERED: LOPE2TAB11 PO (00:43)
[2018-12-31] MEDS ORDERED: VENL150C43 PO (00:43)
[2018-12-31] MEDS ORDERED: DOCU100C16 PO (00:43)
[2018-12-31] MEDS ORDERED: VITMTA PO (00:43)
[2018-12-31] MEDS ORDERED: DULC5TAB PO (00:43)
[2018-12-31] MEDS ORDERED: IBUP-1092 PO (00:43)
[2018-12-31] MEDS ORDERED: CYCL10TA PO (00:43)
[2018-12-31 01:06] VITALS: BP 90/58
[2018-12-31] MEDS: ENOXAPARIN 40 MG/0.4 ML SYRINGE (J1650) SC SCH ×2 (02:29→20:32)
[2018-12-31] MEDS: LIDOCAINE 5% (LIDODERM) PATCH TD SCH ×2 (02:29→20:31)
[2018-12-31] MEDS ORDERED: ALBUTEROL SULFATE 2.5 MG/0.5 ML INH NEB SOLN NEB PRN (05:30)
--- NOTE | 2018-12-31 05:52 | HPEPDOC ---
General Date of Admission December 30, 2018 at 23:49 Date of Service: December 30, 2018 Chief Complaint The patient is a 58-year-old female admitted with a reason for visit of Ams; Back Pain. Source: Patient, Family, Old records Exam Limitations: No limitations Severity: Moderate History of Present Illness 58 year old female from [place] visiting her daughter with PMD of morbid obesity s/p gastric bypass surgery in 2001, asthma, alcohol abuse, depression, anxiety had a fall on 12/22/18. On December 24 it was found that she has acute coccyx fracture. She was seen in the ED then discharged hoe with pain meds tramadol. For the past 10 days she has been having persistent severe low back pain which is constant, dull aching at the top part and sharp at he lower part extending from one side to the other with difficulty in ambulation. She also has associated muscle spasms with minimal movement. Then from yesterday night she has been unable to bear weight and stand up and unable to get out of bed SO she had urinary in continence x 3 in bed yesterday. Patient has also been seeing things. She had stopped drinking 10 days ago. Her daughter thinks her hallucinations were related to her alcohol withdrawal. She says the patient had taken tramadol before with no side effects. Patient is being admitted for intractable low back pain and inability to ambulate and altered mental status possibly due to alcohol withdrawal Home Medications Scheduled Bisacodyl (Dulcolax) 5 Mg Tablet.dr, 5 MG PO QHS, (Reported) Multivitamins (Thera M Plus Tablet) 1 Each Tablet, 1 TAB PO DAILY, (Reported) Ranitidine HCl (Ranitidine HCl) 150 Mg Tab, 150 MG PO AC, (Reported) Venlafaxine HCl (Venlafaxine HCl ER) 150 Mg Cap.er.24h, 150 MG PO DAILY, (Reported) Scheduled PRN Albuterol Sulfate (Proair Hfa) 8.5 Gm Hfa.aer.ad, 2 PUFF INH QID PRN for SHORTNESS OF BREATH, (Reported) Cyclobenzaprine HCl (Cyclobenzaprine HCl) 10 Mg Tablet, 10 MG PO TID PRN for MUSCLE SPASMS, (Reported) Diphenhydramine HCl (Diphenhydramine HCl) 50 Mg Capsule, 50 MG PO Q8H PRN for HIVES, (Reported) Docusate Sodium (Docusate Sodium) 100 Mg Capsule, 100 MG PO DAILY PRN for CONSTIPATION, (Reported) Ibuprofen (Ibuprofen) 200 Mg Tablet, 400 MG PO Q6H PRN for PAIN, (Reported) Loperamide HCl (Imodium A-D) 2 Mg Tablet, 4 MG PO QID PRN for DIARRHEA, (Reported) Tramadol HCl (Tramadol HCl) 50 Mg Tablet, 50 MG PO Q6H PRN for PAIN, (Reported) Allergies Coded Allergies: promethazine (Verified Allergy, Mild, HIVES, 12/24/18) Past Medical History Medical History Morbid obesity s/p gastric bypass surgery in 2001, asthma, alcohol abuse, depression, anxiety Surgical History Gastric bypass surgery in 2001 Family History reviewed with Patient noncontributory to her present state. Social History Alcohol: heavy Drugs: denies A-FIB/CHADSVASC A-FIB History Current/History of A-Fib/PAF?: No Review of Systems Constitutional: Denies: Chills, Fever, Night Sweats Eyes: Denies: Pain, Vision change ENT: Denies: Head Aches, Ear Pain, Dysphagia Skin: Denies: Rash, Lesions, Breakdown Pulmonary: Denies: Dyspnea, Cough Cardiovascular: Denies: Chest Pain, Palpitations, Orthopnea, Paroxysmal Noc. Dyspnea, Lt Headedness Gastrointestinal: Reports: Diarrhea, Constipation Genitourinary: Denies: Dysuria, Frequency, Incontinence, Retention Musculoskeletal: Reports: Back Pain, Spasms Neurological: Reports: Weakness, Confusion Psych: Reports: Anxiety, Depression Physical Examination General Exam: Positive: Alert, Cooperative, Mild Distress Eye Exam: Positive: PERRLA, Conjunctiva & lids normal, EOMI; Negative: Sclera icteric ENT Exam: Positive: Atraumatic, Mucous membr. moist/pink, Pharynx Normal Neck Exam: Positive: Supple; Negative: JVD, thyromegaly Chest Exam: Positive: Clear to auscultation, Normal air movement Heart Exam: Positive: Rate Normal, Regular Rhythm, Normal S1, Normal S2; Negative: Murmurs, Rubs Abdomen Exam: Positive: Normal bowel sounds; Negative: BS Hyperactive, BS Hypoactive, Soft, Tenderness, Hepatospenomegaly, Mass, Hernia, Other Extremity Exam: Negative: Clubbing, Cyanosis, Edema Skin Exam: Positive: Nl turgor and temperature; Negative: Breakdown, Lesion Neuro Exam: Positive: Normal Speech, Strength at 5/5 X4 ext, Normal Tone, Sensation Intact Psych Exam: Positive: Anxiety, Memory Intact, Oriented x 3 Vital Signs Vital Signs Date Time Temp Pulse Resp B/P (MAP) Pulse Ox O2 Delivery O2 Flow Rate FiO2 12/31/18 01:06 97.1 88 16 90/58 (69) 96 12/31/18 00:23 Room Air Laboratory Data Labs 24H Laboratory Tests 2 12/30/18 18:52: Immature Granulocyte % (Auto) 0.9, White Blood Count 5.7, Red Blood Count 3.90L, Hemoglobin 13.2, Hematocrit 40.4, Mean Corpuscular Volume 103.6H, Mean Corpuscular Hemoglobin 33.8H, Mean Corpuscular Hemoglobin Concent 32.7, Red Cell Distribution Width 13.9, Platelet Count 177, Neutrophils (%) (Auto) 63.7, Lymphocytes (%) (Auto) 22.6L, Monocytes (%) (Auto) 9.8H, Eosinophils (%) (Auto) 2.3, Basophils (%) (Auto) 0.7, Neutrophils # (Auto) 3.7, Lymphocytes # (Auto) 1.3L, Monocytes # (Auto) 0.6, Eosinophils # (Auto) 0.1, Basophils # (Auto) 0.0, Nucleated Red Blood Cells % (auto) 0.0, Anion Gap 7L, Glomerular Filtration Rate > 60.0, Lactic Acid Level 1.2, Calcium Level 8.7L, Aspartate Amino Transf (AST/SGOT) 39H, Alanine Aminotransferase (ALT/SGPT) 23, Alkaline Phosphatase 206H, Total Bilirubin 0.8, Direct Bilirubin 0.3H, Ammonia < 10, Total Protein 5.1L, Albumin 2.1L, Albumin/Globulin Ratio 0.70L, Lipase 34L, Ethyl Alcohol Level < 0.003 12/30/18 20:47: Urine Color YELLOW, Urine Appearance CLEAR, Urine pH 6.0, Urine Specific [place] 1.003, Urine Protein NEGATIVE, Urine Glucose (UA) NEGATIVE, Urine Ketones 1+H, Urine Blood NEGATIVE, Urine Nitrite NEGATIVE, Urine Bilirubin NEGATIVE, Urine Urobilinogen 4.0H, Urine Leukocyte Esterase NEGATIVE, Urine WBC (Auto) 0, Urine RBC (Auto) 0, Urine Hyaline Casts (Auto) 0, Urine Bacteria (Auto) NEGATIVE, Urine Squamous Epithelial Cells 0, Urine Sperm (Auto) , Urine Amphetamines Screen NEGATIVE, Urine Benzodiazepines Screen NEGATIVE, Urine Opiates Screen NEGATIVE, Urine Methadone Screen NEGATIVE, Urine Barbiturates Screen NEGATIVE, Urine Phencyclidine Screen NEGATIVE, Urine Cocaine Metabolite Screen NEGATIVE, Urine Cannabinoids Screen NEGATIVE CBC/BMP Laboratory Tests 12/30/18 18:52 Red Blood Count 3.90 L, Mean Corpuscular Volume 103.6 H, Mean Corpuscular Hemoglobin 33.8 H, Mean Corpuscular Hemoglobin Concent 32.7, Red Cell Distribution Width 13.9, Neutrophils (%) (Auto) 63.7, Lymphocytes (%) (Auto) 22.6 L, Monocytes (%) (Auto) 9.8 H, Eosinophils (%) (Auto) 2.3, Basophils (%) (Auto) 0.7, Neutrophils # (Auto) 3.7, Lymphocytes # (Auto) 1.3 L, Monocytes # (Auto) 0.6, Eosinophils # (Auto) 0.1, Basophils # (Auto) 0.0 Assessment/Plan 58 year old female from [place] visiting her daughter with PMD of morbid obesity s/p gastric bypass surgery in 2001, asthma, alcohol abuse, depression, anxiety had a fall on 12/22/18. On December 24 it was found that she has acute coccyx fracture. She was seen in the ED then discharged hoe with pain meds tramadol. For the past 10 days she has been having persistent severe low back pain which is constant, dull aching at the top part and sharp at he lower part extending from one side to the other with difficulty in ambulation. Then from yesterday night she has been unable to bear weight and stand up and unable to get out of bed SO she had urinary in continence x 3 in bed yesterday. Patient has also been seeing things. She had stopped drinking 10 days ago. Her daughter thinks her hallucinations were related to her alcohol withdrawal. She says the patient had taken tramadol before with no side effects. Pateint is being admitted for intractable low back pain and inability to ambulate and altered mental status possibly due to alcohol withdrawal Acute Coccyx fracture s/p mechanical fall on 12/22/18 pain control with toradol and lidoderm patch PT. Metabolic encephalopathy possible alcohol withdrawal vs meds will continue to monitor stopped tramadol and cyclobenzaprine. Alcohol withdrawal has been having hallucinations and confusion at home whether this is due to alcohol withdrawal r due to meds like tramadol and cyclobenzaprine is unsure will place on CIKY protocol thiamine folate multivitamins. H/o gastric bypass surgery continue supplements Asthma albuterol prn. Depression continue venlafaxine DVT prophylaxis ordered. Plan / VTE VTE Prophylaxis Ordered?: Yes SHANNEN PRASAD MD December 31, 2018 05:52
[2018-12-31 06:00] VITALS: BP 92/51
[2018-12-31 06:03] LABS: BASO % 0.7 % (0.0-1.0); EOS # 0.2 10^3/uL (0.0-0.50); EOS % 3.2 % (0.0-3.0); HEMATOCRIT 37.4 % (36.0-47.0); HEMOGLOBIN 12.3 g/dl (12.0-15.5); MEAN CORPUSCULAR HEMOGLOBIN 34.2 pg (27.0-33.0); MEAN CORPUSCULAR HGB CONC 32.9 g/dl (32.0-36.5); MEAN CORPUSCULAR VOLUME 103.9 fl (80.0-96.0); MONO # 0.7 10^3/uL (0.0-0.8); MONO % 11.7 % (0.0-5.0); NEUTROPHILS # 2.7 10^3/uL (1.8-7.7); NEUTROPHILS % 47.7 % (36.0-66.0); PLATELET COUNT, AUTOMATED 173 10^3/uL (150-450); WHITE BLOOD COUNT 5.7 10^3/uL (4.0-10.0)
[2018-12-31 06:32] LABS: BLOOD UREA NITROGEN 10 MG/DL (7-18); CALCIUM LEVEL 7.6 MG/DL (8.8-10.2); CARBON DIOXIDE LEVEL 29 MEQ/L (21-32); CHLORIDE LEVEL 106 MEQ/L (98-107); CREATININE FOR GFR 0.81 MG/DL (0.55-1.30); GLOMERULAR FILTRATION RATE > 60.0 (>45); GLUCOSE, FASTING 77 MG/DL (70-100); POTASSIUM SERUM 4.2 MEQ/L (3.5-5.1); SODIUM LEVEL 138 MEQ/L (136-145)
[2018-12-31 06:50] VITALS: BP 94/62
[2018-12-31] MEDS: THIAMINE 100 MG TAB PO SCH ×2 (06:56→08:14)
[2018-12-31] MEDS: MULTIVITAMINS/MINERALS THERAP 1 TAB PO SCH (08:14)
[2018-12-31] MEDS: OMEPRAZOLE 20 MG CAP PO SCH (08:15)
[2018-12-31] MEDS: FOLIC ACID 1 MG TAB PO SCH (08:15)
[2018-12-31] MEDS: VENLAFAXINE **XR** 75MG CAPSULE PO SCH (08:15)
[2018-12-31] MEDS: **NOTE PATIENT COMMENT** MISC XX SCH (08:15)
[2018-12-31] MEDS ORDERED: traMADol 50 MG TAB PO PRN (12:30)
[2018-12-31] MEDS: NS 1,000 ML IV SCH ×2 (13:19→23:39)
[2018-12-31] MEDS: KETOROLAC 30 MG/ML VIAL (J1885) IV PRN ×2 (13:19→20:33)
[2018-12-31 14:00] VITALS: BP 148/80
--- NOTE | 2018-12-31 14:39 | IPNPDOC ---
Subjective Date Seen The patient was seen on 12/31/18. Subjective Chief Complaint/HPI Complaining of pain in the tailbone unable to sit General: Denies: ROS Unobtainable, Chills, Night Sweats, Fatigue, Malaise, Normal Appetite, Other Symptoms Constitutional: Denies: Chills, Fever, Malaise, Night Sweats, Weakness, Fatigue, Weight Loss, Lethargy, Other Eyes: Denies: Pain, Vision change, Conjunctivae inflammation, Eyelid inflammation, Redness, Other ENT: Denies: Head Aches, Ear Pain, Dysphagia, Sinus Congestion, Post Nasal Drip, Sore Throat, Epistaxis, Other Symptoms Skin: Denies: Rash, Lesions, Jaundice, Bruising, Itching, Dry, Breakdown, Nail Changes, Other Pulmonary: Denies: Dyspnea, Cough, Pleuritic Chest Pain, Other Symptoms Cardiovascular: Denies: Chest Pain, Palpitations, Orthopnea, Paroxysmal Noc. Dyspnea, Edema, Lt Headedness, Other Symptoms Gastrointestinal: Denies: Nausea, Vomiting, Abdominal Pain, Diarrhea, Constipation, Melena, Hematochezia, Other Symptoms Genitourinary: Denies: Dysuria, Frequency, Incontinence, Hematuria, Retention, Other Symptoms Hematologic: Denies: Bruising, Bleeding Excessively, Petecchia, Purpura, Enlarged Lymph Nodes, Other Hematologic Endocrine: Denies: Polydipsia, Polyphagia, Polyuria, Heat Intolerance, Cold Intolerance, Other Endocrine Sx Musculoskeletal: Reports: Other Symptoms ( pain in coccyx area) Neurological: Denies: Weakness, Numbness, Incoordination, Change in speech, Confusion, Seizures, Other Symptoms Psych: Denies: Mood Normal, Anxiety, Depression, Memory Issues, Thoughts of Self Harm, Anger, Thoughts of Harming Other, Other Psych Objective Physical Examination General Exam: Positive: Alert, Cooperative, Mild Distress Eye Exam: Positive: PERRLA, Conjunctiva & lids normal, EOMI; Negative: Sclera icteric ENT Exam: Positive: Atraumatic, Mucous membr. moist/pink, Pharynx Normal Neck Exam: Positive: Supple; Negative: JVD, thyromegaly Chest Exam: Positive: Clear to auscultation, Normal air movement Heart Exam: Positive: Rate Normal, Regular Rhythm, Normal S1, Normal S2; Negative: Murmurs, Rubs Abdomen Exam: Positive: Normal bowel sounds; Negative: BS Hyperactive, BS Hypoactive, Soft, Tenderness, Hepatospenomegaly, Mass, Hernia, Other Extremity Exam: Negative: Clubbing, Cyanosis, Edema Skin Exam: Positive: Nl turgor and temperature; Negative: Breakdown, Lesion Neuro Exam: Positive: Normal Speech, Strength at 5/5 X4 ext, Normal Tone, Sensation Intact Psych Exam: Positive: Anxiety, Memory Intact, Oriented x 3 Assessment /Plan Problems (1) Fractured coccyx Status: Acute Problem Text: 58 year old female from [place] visiting her daughter with PMD of morbid obesity s/p gastric bypass surgery in 2001, asthma, alcohol abuse, depression, anxiety had a fall on 12/22/18. On December 24 it was found that she has acute coccyx fracture. She was seen in the ED then discharged hoe with pain meds tramadol. For the past 10 days she has been having persistent severe low back pain which is constant, dull aching at the top part and sharp at he lower part extending from one side to the other with difficulty in ambulation. Then from yesterday night she has been unable to bear weight and stand up and unable to get out of bed SO she had urinary in continence x 3 in bed yesterday. Patient has also been seeing things. She had stopped drinking 10 days ago. Her daughter thinks her hallucinations were related to her alcohol withdrawal. She says the patient had taken tramadol before with no side effects. Pateint is being admitted for intractable low back pain and inability to ambulate and altered mental status possibly due to alcohol withdrawal Acute Coccyx fracture s/p mechanical fall on 12/22/18 pain control with toradol and lidoderm patch PT evaluate the patient today, but she she failed to be discharged home Will continue physical therapy and discharge home once clinically stable (2) Alcohol use disorder Problem Text: No signs of withdrawal Patient will be continued on all all her home medications Plan/VTE VTE Prophylaxis Ordered?: Yes VS, I&O, 24H, Lukebonyudelka Vital Signs/I&O Vital Signs Date Time Temp Pulse Resp B/P (MAP) Pulse Ox O2 Delivery O2 Flow Rate FiO2 12/31/18 06:50 94/62 (73) 12/31/18 06:00 91 12/31/18 06:00 97.2 16 93 12/31/18 00:23 Room Air I&O- Last 24 Hours up to 6 AM 12/31/18 06:00 Intake Total 150 ml Balance 150 ml Laboratory Data 24H LABS Laboratory Tests 2 12/30/18 18:52: Immature Granulocyte % (Auto) 0.9, White Blood Count 5.7, Red Blood Count 3.90L, Hemoglobin 13.2, Hematocrit 40.4, Mean Corpuscular Volume 103.6H, Mean Corpuscular Hemoglobin 33.8H, Mean Corpuscular Hemoglobin Concent 32.7, Red Cell Distribution Width 13.9, Platelet Count 177, Neutrophils (%) (Auto) 63.7, Lymphocytes (%) (Auto) 22.6L, Monocytes (%) (Auto) 9.8H, Eosinophils (%) (Auto) 2.3, Basophils (%) (Auto) 0.7, Neutrophils # (Auto) 3.7, Lymphocytes # (Auto) 1.3L, Monocytes # (Auto) 0.6, Eosinophils # (Auto) 0.1, Basophils # (Auto) 0.0, Nucleated Red Blood Cells % (auto) 0.0, Anion Gap 7L, Glomerular Filtration Rate > 60.0, Lactic Acid Level 1.2, Calcium Level 8.7L, Aspartate Amino Transf (AST/SGOT) 39H, Alanine Aminotransferase (ALT/SGPT) 23, Alkaline Phosphatase 206H, Total Bilirubin 0.8, Direct Bilirubin 0.3H, Ammonia < 10, Total Protein 5.1L, Albumin 2.1L, Albumin/Globulin Ratio 0.70L, Lipase 34L, Ethyl Alcohol Level < 0.003 12/30/18 20:47: Urine Color YELLOW, Urine Appearance CLEAR, Urine pH 6.0, Urine Specific [place] 1.003, Urine Protein NEGATIVE, Urine Glucose (UA) NEGATIVE, Urine Ketones 1+H, Urine Blood NEGATIVE, Urine Nitrite NEGATIVE, Urine Bilirubin NEGATIVE, Urine Urobilinogen 4.0H, Urine Leukocyte Esterase NEGATIVE, Urine WBC (Auto) 0, Urine RBC (Auto) 0, Urine Hyaline Casts (Auto) 0, Urine Bacteria (Auto) NEGATIVE, Urine Squamous Epithelial Cells 0, Urine Sperm (Auto) , Urine Amphetamines Screen NEGATIVE, Urine Benzodiazepines Screen NEGATIVE, Urine Opiates Screen NEGATIVE, Urine Methadone Screen NEGATIVE, Urine Barbiturates Screen NEGATIVE, Urine Phencyclidine Screen NEGATIVE, Urine Cocaine Metabolite Screen NEGATIVE, Urine Cannabinoids Screen NEGATIVE 12/31/18 05:32: Immature Granulocyte % (Auto) 0.7, White Blood Count 5.7, Red Blood Count 3.60L, Hemoglobin 12.3, Hematocrit 37.4, Mean Corpuscular Volume 103.9H, Mean Corpuscular Hemoglobin 34.2H, Mean Corpuscular Hemoglobin Concent 32.9, Red Cell Distribution Width 13.8, Platelet Count 173, Neutrophils (%) (Auto) 47.7, Lymphocytes (%) (Auto) 36.0, Monocytes (%) (Auto) 11.7H, Eosinophils (%) (Auto) 3.2H, Basophils (%) (Auto) 0.7, Neutrophils # (Auto) 2.7, Lymphocytes # (Auto) 2.0, Monocytes # (Auto) 0.7, Eosinophils # (Auto) 0.2, Basophils # (Auto) 0.0, Nucleated Red Blood Cells % (auto) 0.0, Anion Gap 3L, Glomerular Filtration Rate > 60.0, Calcium Level 7.6L, Blood Urea Nitrogen 10, Creatinine 0.81, Sodium Level 138, Potassium Level 4.2, Chloride Level 106, Carbon Dioxide Level 29 CBC/BMP Laboratory Tests 12/30/18 18:52 Red Blood Count 3.90 L, Mean Corpuscular Volume 103.6 H, Mean Corpuscular Hemoglobin 33.8 H, Mean Corpuscular Hemoglobin Concent 32.7, Red Cell Distribution Width 13.9, Neutrophils (%) (Auto) 63.7, Lymphocytes (%) (Auto) 22.6 L, Monocytes (%) (Auto) 9.8 H, Eosinophils (%) (Auto) 2.3, Basophils (%) (Auto) 0.7, Neutrophils # (Auto) 3.7, Lymphocytes # (Auto) 1.3 L, Monocytes # (Auto) 0.6, Eosinophils # (Auto) 0.1, Basophils # (Auto) 0.0 12/31/18 05:32 Red Blood Count 3.60 L, Mean Corpuscular Volume 103.9 H, Mean Corpuscular Hemoglobin 34.2 H, Mean Corpuscular Hemoglobin Concent 32.9, Red Cell Distribution Width 13.8, Neutrophils (%) (Auto) 47.7, Lymphocytes (%) (Auto) 36.0, Monocytes (%) (Auto) 11.7 H, Eosinophils (%) (Auto) 3.2 H, Basophils (%) (Auto) 0.7, Neutrophils # (Auto) 2.7, Lymphocytes # (Auto) 2.0, Monocytes # (Auto) 0.7, Eosinophils # (Auto) 0.2, Basophils # (Auto) 0.0, Calcium Level 7.6 L GONZALEZ GALINDO MD December 31, 2018 14:39
[2018-12-31 18:00] VITALS: BP 143/62
[2018-12-31 22:00] VITALS: BP 132/84
[2019-01-01] VITALS (10 sets, daily range): BP systolic 126–164; BP diastolic 68–98
[2019-01-01] MEDS: KETOROLAC 30 MG/ML VIAL (J1885) IV PRN (03:22)
[2019-01-01 06:32] LABS: BASO % 0.7 % (0.0-1.0); EOS # 0.1 10^3/uL (0.0-0.50); HEMATOCRIT 39.4 % (36.0-47.0); HEMOGLOBIN 12.7 g/dl (12.0-15.5); LYMPH # 1.5 10^3/uL (1.5-4.5); LYMPH % 34.9 % (24.0-44.0); MEAN CORPUSCULAR HEMOGLOBIN 33.1 pg (27.0-33.0); MEAN CORPUSCULAR HGB CONC 32.2 g/dl (32.0-36.5); MEAN CORPUSCULAR VOLUME 102.6 fl (80.0-96.0); MONO # 0.4 10^3/uL (0.0-0.8); MONO % 10.3 % (0.0-5.0); NEUTROPHILS # 2.1 10^3/uL (1.8-7.7); NEUTROPHILS % 50.2 % (36.0-66.0); PLATELET COUNT, AUTOMATED 181 10^3/uL (150-450); RED BLOOD COUNT 3.84 10^6/uL (4.00-5.40); WHITE BLOOD COUNT 4.3 10^3/uL (4.0-10.0)
[2019-01-01 06:48] LABS: BLOOD UREA NITROGEN 8 MG/DL (7-18); CARBON DIOXIDE LEVEL 24 MEQ/L (21-32); CHLORIDE LEVEL 113 MEQ/L (98-107); CREATININE FOR GFR 0.57 MG/DL (0.55-1.30); GLOMERULAR FILTRATION RATE > 60.0 (>45); GLUCOSE, FASTING 67 MG/DL (70-100); POTASSIUM SERUM 3.6 MEQ/L (3.5-5.1); SODIUM LEVEL 143 MEQ/L (136-145)
[2019-01-01] MEDS: LORazepam 2 MG TAB PO PRN ×2 (08:26→11:20)
[2019-01-01] MEDS: VENLAFAXINE **XR** 75MG CAPSULE PO SCH (08:48)
[2019-01-01] MEDS: FOLIC ACID 1 MG TAB PO SCH (08:48)
[2019-01-01] MEDS: THIAMINE 100 MG TAB PO SCH ×2 (08:49→22:27)
[2019-01-01] MEDS: MULTIVITAMINS/MINERALS THERAP 1 TAB PO SCH (08:49)
[2019-01-01] MEDS: OMEPRAZOLE 20 MG CAP PO SCH (08:49)
[2019-01-01] MEDS: **NOTE PATIENT COMMENT** MISC XX SCH (09:28)
--- NOTE | 2019-01-01 10:32 | IPNPDOC ---
Subjective Date Seen The patient was seen on 01/01/19. Subjective Chief Complaint/HPI Patient was very confused with the visual hallucinations, tremors Polder IV line out CIWA Was 20, and patient was started on benzodiazepines for all: Withdrawal. Patient is awake, alert, slightly confused but much improved. Still is shaky General: Denies: ROS Unobtainable, Chills, Night Sweats, Fatigue, Malaise, Normal Appetite, Other Symptoms Constitutional: Denies: Chills, Fever, Malaise, Night Sweats, Weakness, Fatigue, Weight Loss, Lethargy, Other Eyes: Denies: Pain, Vision change, Conjunctivae inflammation, Eyelid inflammation, Redness, Other ENT: Denies: Head Aches, Ear Pain, Dysphagia, Sinus Congestion, Post Nasal Drip, Sore Throat, Epistaxis, Other Symptoms Skin: Denies: Rash, Lesions, Jaundice, Bruising, Itching, Dry, Breakdown, Nail Changes, Other Pulmonary: Denies: Dyspnea, Cough, Pleuritic Chest Pain, Other Symptoms Cardiovascular: Denies: Chest Pain, Palpitations, Orthopnea, Paroxysmal Noc. Dyspnea, Edema, Lt Headedness, Other Symptoms Gastrointestinal: Denies: Nausea, Vomiting, Abdominal Pain, Diarrhea, Constipation, Melena, Hematochezia, Other Symptoms Genitourinary: Denies: Dysuria, Frequency, Incontinence, Hematuria, Retention, Other Symptoms Hematologic: Denies: Bruising, Bleeding Excessively, Petecchia, Purpura, Enlarged Lymph Nodes, Other Hematologic Endocrine: Denies: Polydipsia, Polyphagia, Polyuria, Heat Intolerance, Cold Intolerance, Other Endocrine Sx Musculoskeletal: Denies: Neck Pain, Back Pain, Shoulder Pain, Arm Pain, Hand Pain, Leg Pain, Foot Pain, Joint Pain, Muscle Pain, Spasms, Other Symptoms Neurological: Denies: Weakness, Numbness, Incoordination, Change in speech, Confusion, Seizures, Other Symptoms Psych: Denies: Mood Normal, Anxiety, Depression, Memory Issues, Thoughts of Self Harm, Anger, Thoughts of Harming Other, Other Psych Objective Physical Examination General Exam: Positive: Alert, Cooperative, Mild Distress Eye Exam: Positive: PERRLA, Conjunctiva & lids normal, EOMI; Negative: Sclera icteric ENT Exam: Positive: Atraumatic, Mucous membr. moist/pink, Pharynx Normal Neck Exam: Positive: Supple; Negative: JVD, thyromegaly Chest Exam: Positive: Clear to auscultation, Normal air movement Heart Exam: Positive: Rate Normal, Regular Rhythm, Normal S1, Normal S2; Negative: Murmurs, Rubs Abdomen Exam: Positive: Normal bowel sounds; Negative: BS Hyperactive, BS Hypoactive, Soft, Tenderness, Hepatospenomegaly, Mass, Hernia, Other Extremity Exam: Negative: Clubbing, Cyanosis, Edema Skin Exam: Positive: Nl turgor and temperature; Negative: Breakdown, Lesion Neuro Exam: Positive: Normal Speech, Strength at 5/5 X4 ext, Normal Tone, Sensation Intact Psych Exam: Positive: Anxiety, Memory Intact, Oriented x 3 Assessment /Plan Problems (1) Fractured coccyx Status: Acute Problem Text: 58 year old female from [place] visiting her daughter with PMD of morbid obesity s/p gastric bypass surgery in 2001, asthma, alcohol abuse, depression, anxiety had a fall on 12/22/18. On December 24 it was found that she has acute coccyx fracture. She was seen in the ED then discharged hoe with pain meds tramadol. For the past 10 days she has been having persistent severe low back pain which is constant, dull aching at the top part and sharp at he lower part extending from one side to the other with difficulty in ambulation. Then from yesterday night she has been unable to bear weight and stand up and unable to get out of bed SO she had urinary in continence x 3 in bed yesterday. Patient has also been seeing things. She had stopped drinking 10 days ago. Her daughter thinks her hallucinations were related to her alcohol withdrawal. She says the patient had taken tramadol before with no side effects. Pateint is being admitted for intractable low back pain and inability to ambulate and altered mental status possibly due to alcohol withdrawal Acute Coccyx fracture s/p mechanical fall on 12/22/18 pain control with toradol and lidoderm patch PT evaluate the patient today, but she she failed to be discharged home Continue physical therapy (2) Alcohol withdrawal delirium Problem Text: Patient see Rylee score is 20 She is started on benzodiazepines Slight improvement in the behavior Continue close monitoring and one-to-one watch Continue present care Patient pulled out IV lines multiple times, so will not continue IV fluids Oral hydration has been recommended and will be encouraged Plan/VTE VTE Prophylaxis Ordered?: Yes VS, I&O, 24H, Fishbone Vital Signs/I&O Vital Signs Date Time Temp Pulse Resp B/P (MAP) Pulse Ox O2 Delivery O2 Flow Rate FiO2 01/01/19 09:17 97.7 96 0 142/90 (107) 98 12/31/18 00:23 Room Air I&O- Last 24 Hours up to 6 AM 01/01/19 06:00 Intake Total 1930 ml Output Total 650 ml Balance 1280 ml Laboratory Data 24H LABS Laboratory Tests 2 01/01/19 05:39: Immature Granulocyte % (Auto) 0.9, White Blood Count 4.3, Red Blood Count 3.84L, Hemoglobin 12.7, Hematocrit 39.4, Mean Corpuscular Volume 102.6H, Mean Corpuscu lar Hemoglobin 33.1H, Mean Corpuscular Hemoglobin Concent 32.2, Red Cell Distribution Width 14.0, Platelet Count 181, Neutrophils (%) (Auto) 50.2, Lymphocytes (%) (Auto) 34.9, Monocytes (%) (Auto) 10.3H, Eosinophils (%) (Auto) 3.0, Basophils (%) (Auto) 0.7, Neutrophils # (Auto) 2.1, Lymphocytes # (Auto) 1.5, Monocytes # (Auto) 0.4, Eosinophils # (Auto) 0.1, Basophils # (Auto) 0.0, Nucleated Red Blood Cells % (auto) 0.0, Anion Gap 6L, Glomerular Filtration Rate > 60.0, Blood Urea Nitrogen 8, Creatinine 0.57, Sodium Level 143, Potassium Level 3.6, Chloride Level 113H, Carbon Dioxide Level 24, Calcium Level 8.0L CBC/BMP Laboratory Tests 01/01/19 05:39 Red Blood Count 3.84 L, Mean Corpuscular Volume 102.6 H, Mean Corpuscular Hemoglobin 33.1 H, Mean Corpuscular Hemoglobin Concent 32.2, Red Cell Distribution Width 14.0, Neutrophils (%) (Auto) 50.2, Lymphocytes (%) (Auto) 34.9, Monocytes (%) (Auto) 10.3 H, Eosinophils (%) (Auto) 3.0, Basophils (%) (Auto) 0.7, Neutrophils # (Auto) 2.1, Lymphocytes # (Auto) 1.5, Monocytes # (Auto) 0.4, Eosinophils # (Auto) 0.1, Basophils # (Auto) 0.0, Calcium Level 8.0 L GONZALEZ GALINDO MD January 01, 2019 10:32
[2019-01-01] MEDS: ENOXAPARIN 40 MG/0.4 ML SYRINGE (J1650) SC SCH (22:28)
[2019-01-01] MEDS: LIDOCAINE 5% (LIDODERM) PATCH TD SCH (22:28)
[2019-01-02] VITALS (7 sets, daily range): BP systolic 126–170; BP diastolic 78–100
[2019-01-02 06:41] LABS: BASO % 0.6 % (0.0-1.0); EOS # 0.1 10^3/uL (0.0-0.50); EOS % 0.9 % (0.0-3.0); HEMATOCRIT 41.3 % (36.0-47.0); HEMOGLOBIN 13.8 g/dl (12.0-15.5); LYMPH # 1.5 10^3/uL (1.5-4.5); LYMPH % 20.7 % (24.0-44.0); MEAN CORPUSCULAR HEMOGLOBIN 34.8 pg (27.0-33.0); MEAN CORPUSCULAR HGB CONC 33.4 g/dl (32.0-36.5); MEAN CORPUSCULAR VOLUME 104.3 fl (80.0-96.0); MONO # 0.6 10^3/uL (0.0-0.8); MONO % 8.4 % (0.0-5.0); NEUTROPHILS # 4.8 10^3/uL (1.8-7.7); NEUTROPHILS % 68.5 % (36.0-66.0); PLATELET COUNT, AUTOMATED 238 10^3/uL (150-450); RED BLOOD COUNT 3.96 10^6/uL (4.00-5.40)
[2019-01-02 07:15] LABS: ALBUMIN 2.2 GM/DL (3.2-5.2); ALT/SGPT 23 U/L (12-78); BLOOD UREA NITROGEN 4 MG/DL (7-18); CALCIUM LEVEL 8.3 MG/DL (8.8-10.2); CARBON DIOXIDE LEVEL 26 MEQ/L (21-32); CHLORIDE LEVEL 104 MEQ/L (98-107); GLOMERULAR FILTRATION RATE > 60.0 (>45); GLUCOSE, FASTING 65 MG/DL (70-100); SODIUM LEVEL 140 MEQ/L (136-145); TOTAL PROTEIN 5.9 GM/DL (6.4-8.2)
[2019-01-02] MEDS: OMEPRAZOLE 20 MG CAP PO SCH (08:32)
[2019-01-02] MEDS: THIAMINE 100 MG TAB PO SCH ×2 (08:34→20:32)
[2019-01-02] MEDS: FOLIC ACID 1 MG TAB PO SCH (08:34)
[2019-01-02] MEDS: MULTIVITAMINS/MINERALS THERAP 1 TAB PO SCH (08:34)
[2019-01-02] MEDS: VENLAFAXINE **XR** 75MG CAPSULE PO SCH (08:34)
[2019-01-02] MEDS: **NOTE PATIENT COMMENT** MISC XX SCH (08:34)
[2019-01-02] MEDS ORDERED: POTASSIUM CHLORIDE 10 MEQ SR TABLET PO ONE (09:00)
--- NOTE | 2019-01-02 11:11 | IPNPDOC ---
Subjective Date Seen The patient was seen on 01/02/19. Subjective Chief Complaint/HPI Patient has visual hallucinations, but able to communicate and is not aggressive General: Reports: ROS Unobtainable Objective Physical Examination Eye Exam: Positive: PERRLA ENT Exam: Positive: Atraumatic, Mucous membr. moist/pink Neck Exam: Positive: Supple Chest Exam: Positive: Clear to auscultation, Normal air movement Heart Exam: Positive: Rate Normal, Regular Rhythm, Normal S1, Normal S2 Abdomen Exam: Positive: Normal bowel sounds Assessment /Plan Problems (1) Fractured coccyx Status: Acute Problem Text: 58 year old female from [place] visiting her daughter with PMD of morbid obesity s/p gastric bypass surgery in 2001, asthma, alcohol abuse, depression, anxiety had a fall on 12/22/18. On December 24 it was found that she has acute coccyx fracture. She was seen in the ED then discharged hoe with pain meds tramadol. For the past 10 days she has been having persistent severe low back pain which is constant, dull aching at the top part and sharp at he lower part e xtending from one side to the other with difficulty in ambulation. Then from yesterday night she has been unable to bear weight and stand up and unable to get out of bed SO she had urinary in continence x 3 in bed yesterday. Patient has also been seeing things. She had stopped drinking 10 days ago. Her daughter thinks her hallucinations were related to her alcohol withdrawal. She says the patient had taken tramadol before with no side effects. Pateint is being admitted for intractable low back pain and inability to ambulate and altered mental status possibly due to alcohol withdrawal Acute Coccyx fracture s/p mechanical fall on 12/22/18 pain control with toradol and lidoderm patch PT evaluate the patient today, but she she failed to be discharged home Continue physical therapy (2) Alcohol withdrawal delirium Problem Text: Patient seems in full-blown delirium tremors Continue basal benzodiazepine as per CIWA score Was closely monitor her Continue one-to-one watch Continue present care Patient pulled out IV lines multiple times, so will not continue IV fluids Oral hydration has been recommended and will be encouraged Plan/VTE VTE Prophylaxis Ordered?: Yes VS, I&O, 24H, Fishbone Vital Signs/I&O Vital Signs Date Time Temp Pulse Resp B/P (MAP) Pulse Ox O2 Delivery O2 Flow Rate FiO2 5/26/19 09:03 19 01/02/19 07:00 115 126/80 01/02/19 06:00 97.2 98 12/31/18 00:23 Room Air I&O- Last 24 Hours up to 6 AM 01/02/19 06:00 Intake Total 220 ml Output Total 0 ml Balance 220 ml Laboratory Data 24H LABS Laboratory Tests 2 01/02/19 05:44: Immature Granulocyte % (Auto) 0.9, White Blood Count 7.0, Red Blood Count 3.96L, Hemoglobin 13.8, Hematocrit 41.3, Mean Corpuscular Volume 104.3H, Mean Corpuscular Hemoglobin 34.8H, Mean Corpuscular Hemoglobin Concent 33.4, Red Cell Distribution Width 13.9, Platelet Count 238, Neutrophils (%) (Auto) 68.5H, Lymphocytes (%) (Auto) 20.7L, Monocytes (%) (Auto) 8.4H, Eosinophils (%) (Auto) 0.9, Basophils (%) (Auto) 0.6, Neutrophils # (Auto) 4.8, Lymphocytes # (Auto) 1.5, Monocytes # (Auto) 0.6, Eosinophils # (Auto) 0.1, Basophils # (Auto) 0.0, Nucleated Red Blood Cells % (auto) 0.0, Anion Gap 10, Glomerular Filtration Rate > 60.0, Blood Urea Nitrogen 4L, Creatinine 0.50L, Sodium Level 140, Potassium Level 3.0L, Chloride Level 104, Carbon Dioxide Level 26, Calcium Level 8.3L, Aspartate Amino Transf (AST/SGOT) 35, Alanine Aminotransferase (ALT/SGPT) 23, Alkaline Phosphatase 254H, Total Bilirubin 1.0, Total Protein 5.9L, Albumin 2.2L, Albumin/Globulin Ratio 0.59L CBC/BMP Laboratory Tests 01/02/19 05:44 Red Blood Count 3.96 L, Mean Corpuscular Volume 104.3 H, Mean Corpuscular Hemoglobin 34.8 H, Mean Corpuscular Hemoglobin Concent 33.4, Red Cell Distribution Width 13.9, Neutrophils (%) (Auto) 68.5 H, Lymphocytes (%) (Auto) 20.7 L, Monocytes (%) (Auto) 8.4 H, Eosinophils (%) (Auto) 0.9, Basophils (%) (Auto) 0.6, Neutrophils # (Auto) 4.8, Lymphocytes # (Auto) 1.5, Monocytes # (Auto) 0.6, Eosinophils # (Auto) 0.1, Basophils # (Auto) 0.0, Calcium Level 8.3 L, Aspartate Amino Transf (AST/SGOT) 35, Alanine Aminotransferase (ALT/SGPT) 23, Alkaline Phosphatase 254 H, Total Bilirubin 1.0, Total Protein 5.9 L, Albumin 2.2 L GONZALEZ GALINDO MD January 02, 2019 11:11
[2019-01-02] MEDS ORDERED: OLANZapine INTRAMUSCULAR 10 MG VIAL (S0166) IM ONE (15:00)
[2019-01-02] MEDS: NS 1,000 ML IV SCH (15:08)
[2019-01-02] MEDS: ENOXAPARIN 40 MG/0.4 ML SYRINGE (J1650) SC SCH (20:32)
[2019-01-02] MEDS: LIDOCAINE 5% (LIDODERM) PATCH TD SCH (20:32)
[2019-01-02] MEDS: LORazepam 2 MG TAB PO PRN (20:32)
[2019-01-03] VITALS (7 sets, daily range): BP systolic 132–164; BP diastolic 82–102
[2019-01-03] MEDS: NS 1,000 ML IV SCH (01:00)
[2019-01-03 06:01] LABS: BASO % 0.6 % (0.0-1.0); EOS # 0.1 10^3/uL (0.0-0.50); EOS % 1.1 % (0.0-3.0); HEMATOCRIT 38.2 % (36.0-47.0); HEMOGLOBIN 12.7 g/dl (12.0-15.5); LYMPH # 1.5 10^3/uL (1.5-4.5); LYMPH % 27.3 % (24.0-44.0); MEAN CORPUSCULAR HGB CONC 33.2 g/dl (32.0-36.5); MEAN CORPUSCULAR VOLUME 99.2 fl (80.0-96.0); MONO # 0.5 10^3/uL (0.0-0.8); MONO % 8.5 % (0.0-5.0); NEUTROPHILS # 3.4 10^3/uL (1.8-7.7); NEUTROPHILS % 61.6 % (36.0-66.0); PLATELET COUNT, AUTOMATED 219 10^3/uL (150-450); RED BLOOD COUNT 3.85 10^6/uL (4.00-5.40); WHITE BLOOD COUNT 5.4 10^3/uL (4.0-10.0)
[2019-01-03 06:32] LABS: ALT/SGPT 19 U/L (12-78); BILIRUBIN,TOTAL 1.2 MG/DL (0.2-1.0); BLOOD UREA NITROGEN 4 MG/DL (7-18); CARBON DIOXIDE LEVEL 25 MEQ/L (21-32); CHLORIDE LEVEL 107 MEQ/L (98-107); GLOMERULAR FILTRATION RATE > 60.0 (>45); GLUCOSE, FASTING 81 MG/DL (70-100); POTASSIUM SERUM 3.6 MEQ/L (3.5-5.1); SODIUM LEVEL 140 MEQ/L (136-145)
[2019-01-03 06:33] LABS: ALBUMIN 2.1 GM/DL (3.2-5.2); TOTAL PROTEIN 5.5 GM/DL (6.4-8.2)
[2019-01-03] MEDS: OMEPRAZOLE 20 MG CAP PO SCH ×2 (09:00→11:34)
[2019-01-03] MEDS: FOLIC ACID 1 MG TAB PO SCH ×2 (09:00→11:34)
[2019-01-03] MEDS: MULTIVITAMINS/MINERALS THERAP 1 TAB PO SCH ×2 (09:00→11:34)
[2019-01-03] MEDS: **NOTE PATIENT COMMENT** MISC XX SCH (09:39)
--- NOTE | 2019-01-03 10:10 | IPNPDOC ---
Subjective Date Seen The patient was seen on 01/03/19. Subjective Chief Complaint/HPI Patient is sleeping now. She hasn't slept last 24-48 hours, not agitated. No more hallucination General: Reports: ROS Unobtainable Objective Physical Examination Eye Exam: Positive: PERRLA ENT Exam: Positive: Atraumatic Chest Exam: Positive: Clear to auscultation, Normal air movement Heart Exam: Positive: Rate Normal, Regular Rhythm, Normal S1, Normal S2 Abdomen Exam: Positive: Normal bowel sounds, Soft Assessment /Plan Problems (1) Fractured coccyx Status: Acute Problem Text: 58 year old female from [place] visiting her daughter with PMD of morbid obesity s/p gastric bypass surgery in 2001, asthma, alcohol abuse, depression, anxiety had a fall on 12/22/18. On December 24 it was found that she has acute coccyx fracture. She was seen in the ED then discharged hoe with pain meds tramadol. For the past 10 days she has been having persistent severe low back pain which is constant, dull aching at the top part and sharp at he lower part extending from one side to the other with difficulty in ambulation. Then from yesterday night she has been unable to bear weight and stand up and unable to get out of bed SO she had urinary in continence x 3 in bed yesterday. Patient has also been seeing things. She had stopped drinking 10 days ago. Her daughter thinks her hallucinations were related to her alcohol withdrawal. She says the patient had taken tramadol before with no side effects. Pateint is being admitted for intractable low back pain and inability to ambulate and altered mental status possibly due to alcohol withdrawal Acute Coccyx fracture s/p mechanical fall on 12/22/18 pain control with toradol and lidoderm patch Physical therapy will be restarted once patient is) awake, alert and follows commands (2) Alcohol withdrawal delirium Problem Text: Patient seems in full-blown delirium tremors Continue basal benzodiazepine as per CIWA score Was closely monitor her Continue one-to-one watch , Zyprexa 1 dose was given when necessary for hallucinations Patient is currently sleeping, unable to obtained history and she tripped base to sleep. When woken , We'll closely monitor patient and continue benzodiazepine protocol Plan/VTE VTE Prophylaxis Ordered?: Yes VS, I&O, [facility]H, [facility] Vital Signs/I&O Vital Signs Date Time Temp Pulse Resp B/P (MAP) Pulse Ox O2 Delivery O2 Flow Rate FiO2 01/03/19 06:00 97.8 113 18 144/82 (102) 96 12/31/18 00:23 Room Air I&O- Last 24 Hours up to 6 AM 01/03/19 06:00 Intake Total 1160 ml Output Total 0 ml Balance 1160 ml Laboratory Data 24H LABS Laboratory Tests 2 01/03/19 05:39: Immature Granulocyte % (Auto) 0.9, White Blood Count 5.4, Red Blood Count 3.85L, Hemoglobin 12.7, Hematocrit 38.2, Mean Corpuscular Volume 99.2H, Mean Corpuscular Hemoglobin 33.0, Mean Corpuscular Hemoglobin Concent 33.2, Red Cell Distribution Width 13.9, Platelet Count 219, Neutrophils (%) (Auto) 61.6, Lymphocytes (%) (Auto) 27.3, Monocytes (%) (Auto) 8.5H, Eosinophils (%) (Auto) 1.1, Basophils (%) (Auto) 0.6, Neutrophils # (Auto) 3.4, Lymphocytes # (Auto) 1.5, Monocytes # (Auto) 0.5, Eosinophils # (Auto) 0.1, Basophils # (Auto) 0.0, Nucleated Red Blood Cells % (auto) 0.0, Anion Gap 8, Glomerular Filtration Rate > 60.0, Blood Urea Nitrogen 4L, Creatinine 0.40L, Sodium Level 140, Potassium Level 3.6, Chloride Level 107, Carbon Dioxide Level 25, Calcium Level 8.0L, Aspartate Amino Transf (AST/SGOT) 23, Alanine Aminotransferase (ALT/SGPT) 19, Alkaline Phosphatase 249H, Total Bilirubin 1.2H, Total Protein 5.5L, Albumin 2.1L, Albumin/Globulin Ratio 0.62L CBC/BMP Laboratory Tests 01/03/19 05:39 Red Blood Count 3.85 L, Mean Corpuscular Volume 99.2 H, Mean Corpuscular Hemo globin 33.0, Mean Corpuscular Hemoglobin Concent 33.2, Red Cell Distribution Width 13.9, Neutrophils (%) (Auto) 61.6, Lymphocytes (%) (Auto) 27.3, Monocytes (%) (Auto) 8.5 H, Eosinophils (%) (Auto) 1.1, Basophils (%) (Auto) 0.6, Neutrophils # (Auto) 3.4, Lymphocytes # (Auto) 1.5, Monocytes # (Auto) 0.5, Eosinophils # (Auto) 0.1, Basophils # (Auto) 0.0, Calcium Level 8.0 L, Aspartate Amino Transf (AST/SGOT) 23, Alanine Aminotransferase (ALT/SGPT) 19, Alkaline Phosphatase 249 H, Total Bilirubin 1.2 H, Total Protein 5.5 L, Albumin 2.1 L GONZALEZ GALINDO MD January 03, 2019 10:10
[2019-01-03] MEDS: ACETAMINOPHEN TAB 650MG DOSE (2X325MG) PO PRN ×2 (18:16→23:41)
[2019-01-03] MEDS: LIDOCAINE 5% (LIDODERM) PATCH TD SCH (21:40)
[2019-01-03] MEDS: ENOXAPARIN 40 MG/0.4 ML SYRINGE (J1650) SC SCH (21:40)
[2019-01-04 05:49] LABS: BASO % 0.8 % (0.0-1.0); EOS # 0.1 10^3/uL (0.0-0.50); EOS % 2.3 % (0.0-3.0); HEMATOCRIT 42.6 % (36.0-47.0); LYMPH # 1.9 10^3/uL (1.5-4.5); LYMPH % 35.8 % (24.0-44.0); MEAN CORPUSCULAR HEMOGLOBIN 33.2 pg (27.0-33.0); MEAN CORPUSCULAR HGB CONC 32.9 g/dl (32.0-36.5); MEAN CORPUSCULAR VOLUME 100.9 fl (80.0-96.0); MONO # 0.5 10^3/uL (0.0-0.8); MONO % 8.5 % (0.0-5.0); NEUTROPHILS # 2.8 10^3/uL (1.8-7.7); NEUTROPHILS % 51.7 % (36.0-66.0); PLATELET COUNT, AUTOMATED 271 10^3/uL (150-450); RED BLOOD COUNT 4.22 10^6/uL (4.00-5.40); WHITE BLOOD COUNT 5.3 10^3/uL (4.0-10.0)
[2019-01-04 06:00] VITALS: BP 132/88
[2019-01-04 06:24] LABS: ALBUMIN 2.1 GM/DL (3.2-5.2); ALT/SGPT 18 U/L (12-78); BILIRUBIN,TOTAL 0.7 MG/DL (0.2-1.0); BLOOD UREA NITROGEN 5 MG/DL (7-18); CALCIUM LEVEL 8.2 MG/DL (8.8-10.2); CARBON DIOXIDE LEVEL 29 MEQ/L (21-32); CHLORIDE LEVEL 105 MEQ/L (98-107); CREATININE FOR GFR 0.54 MG/DL (0.55-1.30); GLOMERULAR FILTRATION RATE > 60.0 (>45); GLUCOSE, FASTING 75 MG/DL (70-100); POTASSIUM SERUM 3.3 MEQ/L (3.5-5.1); SODIUM LEVEL 143 MEQ/L (136-145); TOTAL PROTEIN 5.7 GM/DL (6.4-8.2)
[2019-01-04] MEDS: ACETAMINOPHEN TAB 650MG DOSE (2X325MG) PO PRN ×2 (06:52→11:54)
[2019-01-04] MEDS: MULTIVITAMINS/MINERALS THERAP 1 TAB PO SCH (07:42)
[2019-01-04] MEDS: FOLIC ACID 1 MG TAB PO SCH (07:42)
[2019-01-04] MEDS: OMEPRAZOLE 20 MG CAP PO SCH (07:43)
[2019-01-04] MEDS: KETOROLAC 30 MG/ML VIAL (J1885) IV PRN ×3 (07:44→23:45)
[2019-01-04] MEDS ORDERED: POTASSIUM CHLORIDE 10 MEQ SR TABLET PO ONE (08:00)
[2019-01-04] MEDS: **NOTE PATIENT COMMENT** MISC XX SCH (09:12)
--- NOTE | 2019-01-04 10:48 | IPNPDOC ---
Subjective Date Seen The patient was seen on 01/04/19. Subjective Chief Complaint/HPI Patient is pleasant, awake, alert, cooperative, oriented 3 today and wishes to go home General: Denies: ROS Unobtainable, Chills, Night Sweats, Fatigue, Malaise, Normal Appetite, Other Symptoms Constitutional: Denies: Chills, Fever, Malaise, Night Sweats, Weakness, Fatigue, Weight Loss, Lethargy, Other Eyes: Denies: Pain, Vision change, Conjunctivae inflammation, Eyelid infla mmation, Redness, Other ENT: Denies: Head Aches, Ear Pain, Dysphagia, Sinus Congestion, Post Nasal Drip, Sore Throat, Epistaxis, Other Symptoms Skin: Denies: Rash, Lesions, Jaundice, Bruising, Itching, Dry, Breakdown, Nail Changes, Other Pulmonary: Denies: Dyspnea, Cough, Pleuritic Chest Pain, Other Symptoms Cardiovascular: Denies: Chest Pain, Palpitations, Orthopnea, Paroxysmal Noc. Dyspnea, Edema, Lt Headedness, Other Symptoms Gastrointestinal: Denies: Nausea, Vomiting, Abdominal Pain, Diarrhea, Constipation, Melena, Hematochezia, Other Symptoms Genitourinary: Denies: Dysuria, Frequency, Incontinence, Hematuria, Retention, Other Symptoms Hematologic: Denies: Bruising, Bleeding Excessively, Petecchia, Purpura, Enlarged Lymph Nodes, Other Hematologic Endocrine: Denies: Polydipsia, Polyphagia, Polyuria, Heat Intolerance, Cold Intolerance, Other Endocrine Sx Musculoskeletal: Denies: Neck Pain, Back Pain, Shoulder Pain, Arm Pain, Hand Pain, Leg Pain, Foot Pain, Joint Pain, Muscle Pain, Spasms, Other Symptoms Neurological: Denies: Weakness, Numbness, Incoordination, Change in speech, Confusion, Seizures, Other Symptoms Psych: Denies: Mood Normal, Anxiety, Depression, Memory Issues, Thoughts of Self Harm, Anger, Thoughts of Harming Other, Other Psych Objective Physical Examination General Exam: Positive: Alert, Cooperative Eye Exam: Positive: PERRLA, Conjunctiva & lids normal ENT Exam: Positive: Atraumatic Chest Exam: Positive: Clear to auscultation, Normal air movement Heart Exam: Positive: Rate Normal, Regular Rhythm, Normal S1, Normal S2 Abdomen Exam: Positive: Normal bowel sounds, Soft Extremity Exam: Positive: Normal pulses Skin Exam: Positive: Nl turgor and temperature Neuro Exam: Positive: Normal Speech Psych Exam: Positive: Mental status NL, Mood NL, Oriented x 3 Assessment /Plan Problems (1) Fractured coccyx Status: Acute Problem Text: 58 year old female from [place] visiting her daughter with PMD of morbid obesity s/p gastric bypass surgery in 2001, asthma, alcohol abuse, depression, anxiety had a fall on 12/22/18. On December 24 it was found that she has acute coccyx fracture. She was seen in the ED then discharged hoe with pain meds tramadol. For the past 10 days she has been having persistent severe low back pain which is constant, dull aching at the top part and sharp at he lower part extending from one side to the other with difficulty in ambulation. Then from yesterday night she has been unable to bear weight and stand up and unable to get out of bed SO she had urinary in continence x 3 in bed yesterday. Patient has also been seeing things. She had stopped drinking 10 days ago. Her daughter thinks her hallucinations were related to her alcohol withdrawal. She says the patient had taken tramadol before with no side effects. Pateint is being admitted for intractable low back pain and inability to ambulate and altered mental status possibly due to alcohol withdrawal Acute Coccyx fracture s/p mechanical fall on 12/22/18 Pain control with Lidoderm patch, Toradol and Tylenol Will restart physical therapy again (2) Alcohol withdrawal delirium Problem Text: Patient's all: Withdrawal has resolved Continue basal benzodiazepine as per CIWA score DC one-to-one watch DC telemetry Zyprexa 1 dose was given when necessary for hallucinations Patient can be discharged back to home with home care on subacute area facility discussed this case mental Plan/VTE VTE Prophylaxis Ordered?: Yes VS, I&O, 24H, [place] Vital Signs/I&O Vital Signs Date Time Temp Pulse Resp B/P (MAP) Pulse Ox O2 Delivery O2 Flow Rate FiO2 01/04/19 06:00 96.8 114 18 132/88 (103) 96 12/31/18 00:23 Room Air I&O- Last 24 Hours up to 6 AM 01/04/19 06:00 Intake Total 550 ml Output Total 0 ml Balance 550 ml Laboratory Data 24H LABS Laboratory Tests 2 01/04/19 05:30: Immature Granulocyte % (Auto) 0.9, White Blood Count 5.3, Red Blood Count 4.22, Hemoglobin 14.0, Hematocrit 42.6, Mean Corpuscular Volume 100.9H, Mean Corpuscular Hemoglobin 33.2H, Mean Corpuscular Hemoglobin Concent 32.9, Red Cell Distribution Width 14.2, Platelet Count 271, Neutrophils (%) (Auto) 51.7, Lymphocytes (%) (Auto) 35.8, Monocytes (%) (Auto) 8.5H, Eosinophils (%) (Auto) 2.3, Basophils (%) (Auto) 0.8, Neutrophils # (Auto) 2.8, Lymphocytes # (Auto) 1.9, Monocytes # (Auto) 0.5, Eosinophils # (Auto) 0.1, Basophils # (Auto) 0.0, Nucleated Red Blood Cells % (auto) 0.0, Anion Gap 9, Glomerular Filtration Rate > 60.0, Blood Urea Nitrogen 5L, Creatinine 0.54L, Sodium Level 143, Potassium Level 3.3L, Chloride Level 105, Carbon Dioxide Level 29, Calcium Level 8.2L, Aspartate Amino Transf (AST/SGOT) 23, Alanine Aminotransferase (ALT/SGPT) 18, Alkaline Phosphatase 267H, Total Bilirubin 0.7, Total Protein 5.7L, Albumin 2.1L, Albumin/Globulin Ratio 0.58L CBC/BMP Laboratory Tests 01/04/19 05:30 Red Blood Count 4.22, Mean Corpuscular Volume 100.9 H, Mean Corpuscular Hemoglobin 33.2 H, Mean Corpuscular Hemoglobin Concent 32.9, Red Cell Distribution Width 14.2, Neutrophils (%) (Auto) 51.7, Lymphocytes (%) (Auto) 35.8, Monocytes (%) (Auto) 8.5 H, Eosinophils (%) (Auto) 2.3, Basophils (%) (Auto) 0.8, Neutrophils # (Auto) 2.8, Lymphocytes # (Auto) 1.9, Monocytes # (Auto) 0.5, Eosinophils # (Auto) 0.1, Basophils # (Auto) 0.0, Calcium Level 8.2 L, Aspartate Amino Transf (AST/SGOT) 23, Alanine Aminotransferase (ALT/SGPT) 18, Alkaline Phosphatase 267 H, Total Bilirubin 0.7, Total Protein 5.7 L, Albumin 2.1 L GONZALEZ GALINDO MD January 04, 2019 10:47
[2019-01-04 14:00] VITALS: BP 142/70
[2019-01-04] MEDS ORDERED: TEMAZEPAM 7.5 MG CAP PO PRN (16:00)
[2019-01-04] MEDS: traMADol 50 MG TAB PO PRN (18:50)
[2019-01-04] MEDS: LIDOCAINE 5% (LIDODERM) PATCH TD SCH (20:22)
[2019-01-04 20:28] VITALS: BP 131/79
[2019-01-04] MEDS: ENOXAPARIN 40 MG/0.4 ML SYRINGE (J1650) SC SCH (20:29)
[2019-01-04] MEDS ORDERED: QUEtiapine FUMARATE 12.5 MG HALF-TAB PO SCH (21:00)
[2019-01-04 22:00] VITALS: BP 131/79
[2019-01-05] MEDS: traMADol 50 MG TAB PO PRN ×2 (02:48→11:16)
[2019-01-05 06:00] VITALS: BP 131/78
[2019-01-05 06:12] LABS: BASO # 0.1 10^3/uL (0.0-0.2); BASO % 0.8 % (0.0-1.0); EOS # 0.2 10^3/uL (0.0-0.50); EOS % 3.7 % (0.0-3.0); HEMATOCRIT 41.3 % (36.0-47.0); HEMOGLOBIN 13.4 g/dl (12.0-15.5); LYMPH # 2.4 10^3/uL (1.5-4.5); LYMPH % 38.1 % (24.0-44.0); MEAN CORPUSCULAR HEMOGLOBIN 32.9 pg (27.0-33.0); MEAN CORPUSCULAR HGB CONC 32.4 g/dl (32.0-36.5); MEAN CORPUSCULAR VOLUME 101.5 fl (80.0-96.0); MONO # 0.4 10^3/uL (0.0-0.8); MONO % 7.1 % (0.0-5.0); NEUTROPHILS # 3.1 10^3/uL (1.8-7.7); NEUTROPHILS % 49.5 % (36.0-66.0); PLATELET COUNT, AUTOMATED 297 10^3/uL (150-450); RED BLOOD COUNT 4.07 10^6/uL (4.00-5.40); WHITE BLOOD COUNT 6.2 10^3/uL (4.0-10.0)
[2019-01-05 06:30] LABS: BLOOD UREA NITROGEN 8 MG/DL (7-18); CALCIUM LEVEL 8.5 MG/DL (8.8-10.2); CARBON DIOXIDE LEVEL 31 MEQ/L (21-32); CHLORIDE LEVEL 106 MEQ/L (98-107); CREATININE FOR GFR 0.66 MG/DL (0.55-1.30); GLOMERULAR FILTRATION RATE > 60.0 (>45); GLUCOSE, FASTING 80 MG/DL (70-100); POTASSIUM SERUM 3.6 MEQ/L (3.5-5.1); SODIUM LEVEL 141 MEQ/L (136-145)
[2019-01-05 08:30] VITALS: BP 136/82
[2019-01-05] MEDS: MULTIVITAMINS/MINERALS THERAP 1 TAB PO SCH (08:31)
[2019-01-05] MEDS: KETOROLAC 30 MG/ML VIAL (J1885) IV PRN (08:31)
[2019-01-05] MEDS: OMEPRAZOLE 20 MG CAP PO SCH (08:31)
[2019-01-05] MEDS: **NOTE PATIENT COMMENT** MISC XX SCH (08:31)
[2019-01-05] MEDS: FOLIC ACID 1 MG TAB PO SCH (08:31)
--- NOTE | 2019-01-05 09:33 | ECGEPIP ---
[facility] Test Date: 2019-01-04 Pat Name: MOLLY MONTANEZ Department: Room: [place] [address] Gender: Female Helicopter Technician: SHERINE : 1960 Requested By: ELMA WINSTON Order Number: [id number] Reading MD: Gold Jean-Baptiste Measurements Intervals [place] Rate: 116 P: 57 CT: 140 QRS: QRSD: 79 T: 39 QT: 320 QTc: 446 Interpretive Statements SINUS TACHYCARDIA MARKED LEFT AXIS DEVIATION Electronically Signed on 01-05-2019 9:32:55 EDT by Gold Jean-Baptiste
[2019-01-05] MEDS ORDERED: TRAM50TA2 PO (10:22)
--- NOTE | 2019-01-05 11:43 | DS.PDOC ---
Discharge Summary General Date of Admission December 30, 2018 at 23:49 Date of Discharge 01/05/2019 Attending Physician: GONZALEZ GALINDO MD Discharge Summary PROCEDURES PERFORMED DURING STAY: None. ADMITTING DIAGNOSES: 1. Fracture of coccyx alcohol withdrawal. DISCHARGE DIAGNOSES: 1. Fracture of coccyx, alcohol withdrawal syndrome. COMPLICATIONS/CHIEF COMPLAINT: Ams; Back Pain. HISTORY OF PRESENT ILLNESS: 58 year old female from [place] visiting her daughter with PMD of morbid obesity s/p gastric bypass surgery in 2001, asthma, alcohol abuse, depression, anxiety had a fall on 12/22/18. On December 24 it was found that she has acute coccyx fracture. She was seen in the ED then discharged hoe with pain meds tramadol. For the past 10 days she has been having persistent severe low back pain which is constant, dull aching at the top part and sharp at he lower part extending from one side to the other with difficulty in ambulation. She also has associated muscle spasms with minimal movement. Then from yesterday night she has been unable to bear weight and stand up and unable to get out of bed SO she had urinary in continence x 3 in bed yesterday. Patient has also been seeing things. She had stopped drinking 10 days ago. Her daughter thinks her hallucinations were related to her alcohol withdrawal. She says the patient had taken tramadol before with no side effects. Patient is being admitted for intractable low back pain and inability to ambulate and altered mental status possibly due to alcohol withdrawal. HOSPITAL COURSE: Patient was admitted with a fracture of coccyx and she was started on physical therapy and pain management. Patient is a heavy drinker and she went through of severe alcohol withdrawal while she was inpatient. Patient had a agitation ,hallucinations which mostly were visual and she pulled out his or her IV line multiple times Patient did receive 1 dose of Zyprexa and also CIWA protocol was started and she was started on benzodiazepine Patient responded very well. After 2 days. Right now she is awake, alert, oriented 3. No more hallucinations. No tremors., Extensive counseling regarding alcohol abstinence was done and she understands very well.. Patient can be discharged home and follow with her PCP in one week. DISCHARGE MEDICATIONS: Please see below. ALLERGIES: Please see below. PHYSICAL EXAMINATION ON DISCHARGE: VITAL SIGNS: Please see below. GENERAL: Normal HEENT: PERRLA NECK: Supple CARDIOVASCULAR EXAMINATION: S1, S2, regular RESPIRATORY EXAMINATION: Clear to A&P ABDOMINAL EXAMINATION: Benign EXTREMITIES: No clubbing, cyanosis, edema SKIN: Normal NEUROLOGICAL EXAMINATION: No motor or sensory deficit PSYCHIATRIC EXAMINATION: Normal LABORATORY DATA: Please see below. IMAGING: As above PROGNOSIS: Good ACTIVITY: As tolerated. DIET: As tolerated DISCHARGE PLAN: Follow with PCP in one week DISPOSITION: . DISCHARGE INSTRUCTIONS: 1. As above. ITEMS TO FOLLOWUP ON ON OUTPATIENT: 1. As above. DISCHARGE CONDITION: Stable. TIME SPENT ON DISCHARGE: 35 minutes. Vital Signs/I&Os Vital Signs Date Time Temp Pulse Resp B/P (MAP) Pulse Ox O2 Delivery O2 Flow Rate FiO2 01/05/19 11:16 17 01/05/19 08:30 110 136/82 01/05/19 06:00 96.5 98 12/31/18 00:23 Room Air I&O- Last 24 Hours up to 6 AM 01/05/19 05:59 Intake Total 1080 ml Output Total 0 ml Balance 1080 ml Laboratory Data Labs 24H Laboratory Tests 2 01/05/19 05:38: Immature Granulocyte % (Auto) 0.8, White Blood Count 6.2, Red Blood Count 4.07, Hemoglobin 13.4, Hematocrit 41.3, Mean Corpuscular Volume 101.5H, Mean Corpuscular Hemoglobin 32.9, Mean Corpuscular Hemoglobin Concent 32.4, Red Cell Distribution Width 14.3, Platelet Count 297, Neutrophils (%) (Auto) 49.5, Lymphocytes (%) (Auto) 38.1, Monocytes (%) (Auto) 7.1H, Eosinophils (%) (Auto) 3.7H, Basophils (%) (Auto) 0.8, Neutrophils # (Auto) 3.1, Lymphocytes # (Auto) 2.4, Monocytes # (Auto) 0.4, Eosinophils # (Auto) 0.2, Basophils # (Auto) 0.1, Nucleated Red Blood Cells % (auto) 0.0, Anion Gap 4L, Glomerular Filtration Rate > 60.0, Blood Urea Nitrogen 8#, Creatinine 0.66, Sodium Level 141, Potassium Level 3.6, Chloride Level 106, Carbon Dioxide Level 31, Calcium Level 8.5L CBC/BMP Laboratory Tests 01/05/19 05:38 Red Blood Count 4.07, Mean Corpuscular Volume 101.5 H, Mean Corpuscular Hemoglobin 32.9, Mean Corpuscular Hemoglobin Concent 32.4, Red Cell Distribution Width 14.3, Neutrophils (%) (Auto) 49.5, Lymphocytes (%) (Auto) 38.1, Monocytes (%) (Auto) 7.1 H, Eosinophils (%) (Auto) 3.7 H, Basophils (%) (Auto) 0.8, Neutrophils # (Auto) 3.1, Lymphocytes # (Auto) 2.4, Monocytes # (Auto) 0.4, Eosinophils # (Auto) 0.2, Basophils # (Auto) 0.1, Calcium Level 8.5 L Discharge Medications Scheduled Bisacodyl (Dulcolax) 5 Mg Tablet.dr, 5 MG PO QHS, (Reported) Multivitamins (Thera M Plus Tablet) 1 Each Tablet, 1 TAB PO DAILY, (Reported) Ranitidine HCl (Ranitidine HCl) 150 Mg Tab, 150 MG PO AC, (Reported) Venlafaxine HCl (Venlafaxine HCl ER) 150 Mg Cap.er.24h, 150 MG PO DAILY, (Reported) Scheduled PRN Albuterol Sulfate (Proair Hfa) 8.5 Gm Hfa.aer.ad, 2 PUFF INH QID PRN for SHORTNESS OF BREATH, (Reported) Docusate Sodium (Docusate Sodium) 100 Mg Capsule, 100 MG PO DAILY PRN for CONSTIPATION, (Reported) Ibuprofen (Ibuprofen) 200 Mg Tablet, 400 MG PO Q6H PRN for PAIN, (Reported) Tramadol HCl (Tramadol HCl) 50 Mg Tablet, 50 MG PO Q6H PRN for PAIN Allergies Coded Allergies: promethazine (Verified Allergy, Mild, HIVES, 12/24/18) GONZALEZ GALINDO MD January 05, 2019 11:43
== END 2019-01-05 13:48 | disposition home or self-care (01) | DRG 552 ==
LOC: M ED 17:18 → M ED INP 23:49 → M MSPAV 12-31 01:07
PROVIDERS: ADMIT Internal Medicine Nephrology; ATTEND Internal Medicine
DX: S32.2XXA Fracture of coccyx, initial encounter for closed fracture (principal); F10.231 Alcohol dependence with withdrawal delirium; E66.01 Morbid (severe) obesity due to excess calories; J45.909 Unspecified asthma, uncomplicated; F32.9 Major depressive disorder, single episode, unspecified; F41.9 Anxiety disorder, unspecified; Z79.899 Other long term (current) drug therapy; Z88.8 Allergy status to other drugs, medicaments and biological substances; Z98.84 Bariatric surgery status; W18.30XA Fall on same level, unspecified, initial encounter; Y92.009 Unspecified place in unspecified non-institutional (private) residence as the place of occurrence of the external cause

== ENCOUNTER 2019-01-15 12:57 | Emergency (ER) | payer MEDICARE, OTHER ==
[~2019-01-15] VITALS: Ht 170.2 cm; Wt 71.8 kg
[~2019-01-15 12:57] MED LIST changes: +CYCL10TA PO; +DOCU100C16 PO; +DULC5TAB PO; +IBUP-1092 PO; +LOPE2TAB11 PO; +PROAAER10 INH; +VENL150C43 PO
[2019-01-15] MEDS ORDERED: KETOROLAC 60 MG/2 ML VIAL (J1885) IM ONE (13:45)
[2019-01-15] MEDS ORDERED: traMADol 50 MG TAB PO ONE (13:45)
--- NOTE | 2019-01-15 14:44 | REP ---
LEFT FEMUR, FOUR VIEWS: HISTORY: Fall. There is no acute fracture or dislocation. There is moderate narrowing of the hip and knee joint spaces. IMPRESSION: There is no acute fracture or dislocation. Electronically Signed by Dav Daniels MD 01/15/2019 02:47 P
--- NOTE | 2019-01-15 14:45 | REP ---
LEFT FOOT, FOUR VIEWS: HISTORY: Fall. There is no acute fracture or dislocation. The joint spaces are normal in appearance. IMPRESSION: There is no acute fracture or dislocation. Electronically Signed by Dav Daniels MD 01/15/2019 02:47 P
[2019-01-15 15:01] VITALS: BP 156/82
== END 2019-01-15 15:14 | disposition home or self-care (01) ==
LOC: M ED 12:57
DX: M79.605 Pain in left leg (principal); M25.572 Pain in left ankle and joints of left foot; S32.2XXD Fracture of coccyx, subsequent encounter for fracture with routine healing; W10.8XXD Fall (on) (from) other stairs and steps, subsequent encounter; J45.909 Unspecified asthma, uncomplicated; F32.9 Major depressive disorder, single episode, unspecified; F41.9 Anxiety disorder, unspecified; K21.9 Gastro-esophageal reflux disease without esophagitis; Z87.81 Personal history of (healed) traumatic fracture; Z98.84 Bariatric surgery status; M54.9 Dorsalgia, unspecified; G89.29 Other chronic pain; Z87.891 Personal history of nicotine dependence; Z79.899 Other long term (current) drug therapy; Z88.8 Allergy status to other drugs, medicaments and biological substances
CPT/HCPCS: 73552; 73630; 96372; 99283; J1885